=== PATIENT | female | born 1955 | race Caucasian/White ===

== ENCOUNTER 2017-04-26 08:53 | Day surgery (SDC) | payer MEDICARE ==
[~2017-04-26] VITALS: Ht 157.5 cm; Wt 82.3 kg
[~2017-04-26 08:53] MED LIST: AMBIEN10 MG PO; BENADRYL25 MG PO; EXFORGE 10-3201 TAB PO; LASIX80 MG PO; NORCO 7.5/325 T1 TA1 PO; PLAVIX75 MG PO; PROTONIX40 MG PO; TOPROL XL100 MG PO; TOUJEO SQ
[2017-04-26 09:35] LABS: ANION GAP 15.4 mmol/L (8-16); CALCIUM 8.7 mg/dL (8.5-10.1); CARBON DIOXIDE 22.8 mmol/L (21.0-32.0); CREATININE - SERUM 8.3 mg/dL (0.6-1.3); POTASSIUM - SERUM 4.2 mmol/L (3.5-5.1)
[2017-04-26 09:39] LABS: BASOPHILS 0.2 % (0-2); EOSINOPHILS 3.1 % (0-7); HEMOGLOBIN 10.4 g/dL (12-16); IMMATURE GRANULOCYTES 0.3 % (0-5); LYMPHOCYTES 17.5 % (15-50); MCHC 32.5 g/dL (31.0-37.0); MEAN PLATELET VOLUME 11.1 fL (7.4-10.4); MONOCYTES 7.5 % (2-11); NEUTROPHILS 71.4 % (40-80); PLATELET COUNT 263 10x3/uL (130-400); RBC 3.72 10x6/uL (4.00-5.40); RDW 13.2 % (11.5-14.5); WBC 11.3 10x3/uL (4.8-10.8)
[2017-04-26 09:44] LABS: APTT 25.6 SECONDS (22.8-39.4); INR 0.89 (0.85-1.17); PROTIME 11.9 SECONDS (11.6-15.0)
[2017-04-26] MEDS ORDERED: TOPROL XL50 MG PO (10:53)
[2017-04-26] MEDS ORDERED: ZANTAC150 MG PO (10:53)
[2017-04-26] MEDS ORDERED: CALAN80 MG PO (10:54)
[2017-04-26] MEDS ORDERED: GABAPENTIN100 MG PO (10:55)
[2017-04-26 10:59] VITALS: BP 185/88; Ht 157.5 cm; Wt 82.3 kg
--- NOTE | 2017-04-26 13:45 | OP ---
PATIENT NAME: NATALIE QURESHI MEDICAL RECORD: [id number] :57 LOCATION:D.NICK ADMISSION DATE: SURGEON: FLORENTINO LUNA MD DATE OF OPERATION: 04/26/2017 PREOPERATIVE DIAGNOSES: 1. End-stage renal disease. 2. Hypercholesterolemia. POSTOPERATIVE DIAGNOSES: 1. End-stage renal disease. 2. Hypercholesterolemia. PROCEDURE: 1. Right upper extremity fistulogram. SURGEON: Florentino Luna MD REPORT OF PROCEDURE: The patient's right upper extremity was prepped and draped in sterile fashion. A 23-Israeli butterfly needle was inserted in the proximal aspect of the AV fistula. A total of 10 mL of contrast was used to perform a fistulogram up to the axilla. There was a good brisk thrill of the fistula and when we inserted the needle, there was a good pulsatile return. The contrast flowed freely through the AV fistula with no signs of any stenoses or significant collaterals. We compressed the AV fistula and saw that the anastomosis was widely patent and functioning appropriately. At this point, we discontinued the procedure and removed the butterfly needle. Pressure was held on the area for a couple minutes until bleeding ceased. This was then dressed with a Band-Aid. COMPLICATIONS: None. CONDITION: Stable. ANESTHESIA: General endotracheal. BLOOD LOSS: Minimal. TRANSINT:[id number] Voice Confirmation ID: [id number] DOCUMENT ID: [id number] FLORENTINO LUNA MD at 1345 CC: DWAYNE PASCUAL MD [id number] DICTATION DATE: 04/26/17 1155 RIPRAP MAN: 04/26/17 1238 [address] [place] [address]
--- NOTE | 2017-04-26 15:38 | NUR ---
1310--IV DC'D, PT UP TO DRESS AT THIS TIME. OLIVE PONCE 1330--DISCHARGE INSTRUCTIONS GIVEN, PT VERBALIZES UNDERSTANDING. PT OFF UNIT VIA WC. OLIVE PONCE
== END 2017-04-26 13:30 | disposition home or self-care (01) ==
LOC: D.OPS 08:53
PROVIDERS: Surgery
DX: E13.22 Other specified diabetes mellitus with diabetic chronic kidney disease (principal); I12.0 Hypertensive chronic kidney disease with stage 5 chronic kidney disease or end stage renal disease; N18.6 End stage renal disease; Z99.2 Dependence on renal dialysis; I44.0 Atrioventricular block, first degree; Z01.812 Encounter for preprocedural laboratory examination

== ENCOUNTER 2017-11-15 17:11 | Inpatient (IN) | payer MEDICARE ==
[2017-11-15] VITALS (7 sets, daily range): BP systolic 146–214; BP diastolic 68–101; BMI 32.1
[~2017-11-15] VITALS: Ht 157.5 cm; Wt 78.3 kg
[~2017-11-15 17:11] MED LIST changes: +CALAN80 MG PO; +GABAPENTIN100 MG PO; +TOPROL XL50 MG PO; +ZANTAC150 MG PO
[2017-11-15] MEDS ORDERED: CATAPRES0.1 MG PO (17:21)
[2017-11-15] MEDS ORDERED: FERROUS SULFAT325 MG PO (17:22)
[2017-11-15] MEDS ORDERED: NOVOLOG100 U/M1 SC (17:25)
[2017-11-15] MEDS ORDERED: ZOCOR20 MG PO (17:26)
[2017-11-15] MEDS ORDERED: DIOVAN320 MG PO (17:28)
[2017-11-15] MEDS ORDERED: ZOFRAN8 MG PO (17:32)
[2017-11-15 18:28] LABS: BASOPHILS 0.3 % (0-2); EOSINOPHILS 0.4 % (0-7); HEMATOCRIT 39.8 % (36.0-48.0); HEMOGLOBIN 12.4 g/dL (12-16); IMMATURE GRANULOCYTES 0.6 % (0-5); LYMPHOCYTES 14.5 % (15-50); MCH 27.3 pg (26.0-34.0); MCHC 31.2 g/dL (31.0-37.0); MCV 87.5 fL (80.0-100.0); MEAN PLATELET VOLUME 11.3 fL (7.4-10.4); NEUTROPHILS 81.2 % (40-80); RBC 4.55 10x6/uL (4.00-5.40); WBC 14.2 10x3/uL (4.8-10.8)
[2017-11-15 18:37] LABS: ANION GAP 17.5 mmol/L (8-16); CALCIUM 11.2 mg/dL (8.5-10.1); CARBON DIOXIDE 24.8 mmol/L (21.0-32.0); CREATININE - SERUM 10.8 mg/dL (0.6-1.3)
[2017-11-15 18:39] LABS: POTASSIUM - SERUM 6.3 mmol/L (3.5-5.1)
[2017-11-15 18:52] LABS: PLATELET COUNT 374 10x3/uL (130-400)
[2017-11-16] VITALS (16 sets, daily range): BP systolic 136–207; BP diastolic 63–127; Ht 157.5 cm; Wt 78.3 kg
[2017-11-16 07:20] LABS: BASOPHILS 0.4 % (0-2); EOSINOPHILS 0.9 % (0-7); HEMATOCRIT 35.3 % (36.0-48.0); HEMOGLOBIN 11.1 g/dL (12-16); IMMATURE GRANULOCYTES 0.6 % (0-5); LYMPHOCYTES 20.2 % (15-50); MCH 27.2 pg (26.0-34.0); MCHC 31.4 g/dL (31.0-37.0); MCV 86.5 fL (80.0-100.0); MEAN PLATELET VOLUME 11.2 fL (7.4-10.4); MONOCYTES 8.8 % (2-11); NEUTROPHILS 69.1 % (40-80); PLATELET COUNT 328 10x3/uL (130-400); RBC 4.08 10x6/uL (4.00-5.40); WBC 13.4 10x3/uL (4.8-10.8)
[2017-11-16 07:24] LABS: ANION GAP 15.7 mmol/L (8-16); CALCIUM 9.6 mg/dL (8.5-10.1); CARBON DIOXIDE 29.7 mmol/L (21.0-32.0); CREATININE - SERUM 10.7 mg/dL (0.6-1.3); POTASSIUM - SERUM 4.4 mmol/L (3.5-5.1)
[2017-11-17 01:52] VITALS: BP 165/58
[2017-11-17 05:37] VITALS: BP 159/61
[2017-11-17 09:01] VITALS: BP 131/59
[2017-11-17 10:00] LABS: BASOPHILS 0.2 % (0-2); EOSINOPHILS 0.2 % (0-7); HEMATOCRIT 34.7 % (36.0-48.0); HEMOGLOBIN 10.8 g/dL (12-16); IMMATURE GRANULOCYTES 0.8 % (0-5); LYMPHOCYTES 10.2 % (15-50); MCH 27.2 pg (26.0-34.0); MCHC 31.1 g/dL (31.0-37.0); MCV 87.4 fL (80.0-100.0); MEAN PLATELET VOLUME 11.4 fL (7.4-10.4); MONOCYTES 5.8 % (2-11); NEUTROPHILS 82.8 % (40-80); PLATELET COUNT 283 10x3/uL (130-400); RBC 3.97 10x6/uL (4.00-5.40); RDW 14.2 % (11.5-14.5)
[2017-11-17 10:04] LABS: WBC 18.5 10x3/uL (4.8-10.8)
[2017-11-17 10:11] LABS: ANION GAP 9.7 mmol/L (8-16); CALCIUM 7.9 mg/dL (8.5-10.1); CARBON DIOXIDE 31.9 mmol/L (21.0-32.0); CREATININE - SERUM 7.6 mg/dL (0.6-1.3); POTASSIUM - SERUM 3.6 mmol/L (3.5-5.1)
[2017-11-17 13:03] VITALS: BP 143/60
[2017-11-17 16:29] LABS: APPEARANCE HAZY (CLEAR); BILIRUBIN NEGATIVE (NEGATIVE); COLOR YELLOW (YELLOW); GLUCOSE 250 mg/dL (NEGATIVE); KETONE NEGATIVE (NEGATIVE); NITRITE NEGATIVE (NEGATIVE); PROTEIN 3+ mg/dL (NEGATIVE); UROBILINOGEN NORMAL (NORMAL)
[2017-11-17 16:37] LABS: BACTERIA MODERATE /hpf (NONE SEEN); EPITHELIAL CELLS 0-5 /hpf (0-5); RED CELLS - URINE RARE /hpf (0-5); WHITE CELLS - URINE 0-5 /hpf (0-5); YEAST >1+ /hpf (NONE SEEN)
[2017-11-17 17:15] VITALS: BP 153/86
[2017-11-17 21:25] VITALS: BP 149/62
[2017-11-18 00:35] VITALS: BP 130/47
[2017-11-18 02:19] VITALS: BP 147/63
[2017-11-18 04:51] LABS: BASOPHILS 0.1 % (0-2); EOSINOPHILS 2.2 % (0-7); HEMATOCRIT 31.3 % (36.0-48.0); HEMOGLOBIN 9.9 g/dL (12-16); IMMATURE GRANULOCYTES 1.3 % (0-5); LYMPHOCYTES 14.5 % (15-50); MCH 27.4 pg (26.0-34.0); MCHC 31.6 g/dL (31.0-37.0); MCV 86.7 fL (80.0-100.0); MEAN PLATELET VOLUME 11.3 fL (7.4-10.4); MONOCYTES 9.9 % (2-11); PLATELET COUNT 244 10x3/uL (130-400); RBC 3.61 10x6/uL (4.00-5.40); RDW 14.2 % (11.5-14.5); WBC 14.7 10x3/uL (4.8-10.8)
[2017-11-18 05:03] LABS: ANION GAP 10.1 mmol/L (8-16); CALCIUM 7.3 mg/dL (8.5-10.1); CARBON DIOXIDE 30.3 mmol/L (21.0-32.0); CREATININE - SERUM 8.2 mg/dL (0.6-1.3); POTASSIUM - SERUM 3.4 mmol/L (3.5-5.1)
[2017-11-18 05:41] VITALS: BP 144/63
[2017-11-18 08:39] VITALS: BP 162/68
[2017-11-18 16:55] VITALS: BP 189/83
[2017-11-18 21:09] VITALS: BP 170/71
[2017-11-19 05:10] LABS: BASOPHILS 0.2 % (0-2); EOSINOPHILS 1.4 % (0-7); HEMATOCRIT 32.2 % (36.0-48.0); HEMOGLOBIN 9.9 g/dL (12-16); IMMATURE GRANULOCYTES 1.4 % (0-5); LYMPHOCYTES 12.1 % (15-50); MCH 26.8 pg (26.0-34.0); MCHC 30.7 g/dL (31.0-37.0); MEAN PLATELET VOLUME 11.8 fL (7.4-10.4); MONOCYTES 10.1 % (2-11); NEUTROPHILS 74.8 % (40-80); PLATELET COUNT 243 10x3/uL (130-400); RDW 14.4 % (11.5-14.5); WBC 17.5 10x3/uL (4.8-10.8)
[2017-11-19 05:14] LABS: HEPATITIS C ANTIBODY <0.1 (0.0-0.9)
[2017-11-19 05:24] LABS: ANION GAP 13.1 mmol/L (8-16); CALCIUM 7.9 mg/dL (8.5-10.1); CARBON DIOXIDE 27.8 mmol/L (21.0-32.0); CREATININE - SERUM 6.7 mg/dL (0.6-1.3); POTASSIUM - SERUM 3.9 mmol/L (3.5-5.1)
[2017-11-19 06:16] VITALS: BP 109/80
[2017-11-19 09:07] VITALS: BP 180/75
[2017-11-19 12:15] VITALS: BP 145/65
[2017-11-19 16:34] VITALS: BP 154/72
[2017-11-19 21:30] VITALS: BP 178/69
[2017-11-20 01:12] VITALS: BP 167/67
[2017-11-20 05:17] LABS: BASOPHILS 0.2 % (0-2); EOSINOPHILS 2.4 % (0-7); HEMATOCRIT 32.5 % (36.0-48.0); HEMOGLOBIN 10.2 g/dL (12-16); IMMATURE GRANULOCYTES 1.1 % (0-5); MCH 27.4 pg (26.0-34.0); MCHC 31.4 g/dL (31.0-37.0); MCV 87.4 fL (80.0-100.0); MEAN PLATELET VOLUME 11.4 fL (7.4-10.4); MONOCYTES 10.9 % (2-11); NEUTROPHILS 70.4 % (40-80); PLATELET COUNT 241 10x3/uL (130-400); RBC 3.72 10x6/uL (4.00-5.40); RDW 14.8 % (11.5-14.5); WBC 16.5 10x3/uL (4.8-10.8)
[2017-11-20 05:21] VITALS: BP 174/78
[2017-11-20 05:30] LABS: ANION GAP 14.3 mmol/L (8-16); CALCIUM 8.4 mg/dL (8.5-10.1); CARBON DIOXIDE 28.2 mmol/L (21.0-32.0); POTASSIUM - SERUM 3.5 mmol/L (3.5-5.1)
[2017-11-20 08:09] VITALS: BP 170/71
[2017-11-20 11:34] VITALS: BP 170/71
[2017-11-20] MEDS ORDERED: HYDRALAZINE HCL50 MG PO (12:46)
== END 2017-11-20 14:53 | disposition home health service (06) | DRG 673 ==
LOC: D.ICU 17:11 → D.M2 17:11
PROVIDERS: Internal Medicine Nephrology; Surgery
PROC: 05HN33Z Insertion of Infusion Device into Left Internal Jugular Vein, Percutaneous Approach (ICD-10-PCS; 2017-11-18)
PROC: B5141ZA Fluoroscopy of Left Jugular Veins using Low Osmolar Contrast, Guidance (ICD-10-PCS; 2017-11-18)
PROC: 0JH63XZ Insertion of Tunneled Vascular Access Device into Chest Subcutaneous Tissue and Fascia, Percutaneous Approach (ICD-10-PCS; principal; 2017-11-18 10:30)
DX: I12.0 Hypertensive chronic kidney disease with stage 5 chronic kidney disease or end stage renal disease (principal); E43 Unspecified severe protein-calorie malnutrition; N18.6 End stage renal disease; N25.81 Secondary hyperparathyroidism of renal origin; E11.22 Type 2 diabetes mellitus with diabetic chronic kidney disease; E87.5 Hyperkalemia; D63.1 Anemia in chronic kidney disease; S05.11XA Contusion of eyeball and orbital tissues, right eye, initial encounter; W19.XXXA Unspecified fall, initial encounter; Z68.32 Body mass index [BMI] 32.0-32.9, adult; Z86.73 Personal history of transient ischemic attack (TIA), and cerebral infarction without residual deficits

== ENCOUNTER 2018-03-12 04:45 | Inpatient (IN) | payer MEDICARE ==
[~2018-03-12] VITALS: Ht 157.5 cm; Wt 76.2 kg
[2018-03-12] VITALS (39 sets, daily range): BP systolic 63–203; BP diastolic 38–128; Ht 157.5 cm; Wt 76.2 kg
--- NOTE | ~2018-03-12 | PN ---
PATIENT:NATALIE QURESHI MEDICAL RECORD: [id number] LOCATION:D.ICU D.230 ADMISSION DATE: 03/12/18 PROGRESS NOTE DATE OF SERVICE: 03/30/2018 SUBJECTIVE: This is a 62-year-old female who has had history of acute respiratory failure with hypoxemia. The patient has volume overload with renal failure. She has had the dialysis therapy. She is also being treated for pneumonia. The patient's blood cultures showed yeast. Bronch specimen showed Evelyn tropicalis. The patient is sedated, on the ventilator. There is no fever. The is at the bedside. PHYSICAL EXAMINATION: GENERAL: Reveals a middle-aged female who appears to be older than stated age. VITAL SIGNS: Temperature 100.8, heart rate 104, respiratory rate of 23, blood pressure 125/64, saturation is 97%. SHEENT: Unremarkable. The patient is normocephalic. Pupils are equal and reactive. NECK: Supple. There is no adenopathy. Trachea is midline. There is fresh tracheostomy tube. CHEST: Clear. There are no wheezes or crackles. CARDIAC: Shows no jugular venous distention, murmur, or gallop. ABDOMEN: Benign without any tenderness. EXTREMITIES: Show no clubbing, cyanosis, or edema. LABORATORY DATA: Lab exam shows white count of 16.1, hemoglobin 9.7, and platelet count is 265,000. Blood gas; pH 7.5, pCO2 of 31, and pO2 of 123 on 40% SIMV. Chemistry is remarkable for potassium of 3.7, sodium 132, creatinine is 5.8, BUN is 78. Albumin is 1.6. ASSESSMENT: 1. Acute respiratory failure with hypoxemia. 2. Pneumonia and pulmonary edema. 3. Chronic renal failure. 4. Anasarca with hypoalbuminemia. This is probably exacerbating renal failure, on dialysis. The patient is currently on tube feeding. 5. Leukocytosis, may be due to topical steroid therapy. DISCUSSION: NEUROPSYCHIATRY: The patient has no focal signs. The patient is currently sedated. CARDIOVASCULAR: The patient may have congestive heart failure. PULMONARY/RESPIRATORY: The patient is on mechanical ventilation with a trach. She is on bronchodilators. RENAL/METABOLIC: The patient has severe renal failure. Creatinine keeps increasing despite dialysis. PLAN: 1. Continue dialysis. 2. Continue ventilator. 3. Continue tube feeding for malnutrition. 4. Weaning. 5. Continue antibiotics. PROGRESS NOTE [id number] NATALIE QURESHI Total time spent is 35 minutes, discussing with nurse, respiratory therapist, and . TRANSINT:[id number] Voice Confirmation ID: [id number] DOCUMENT ID: [id number] MICHAEL TODD at 1307 CC: [id number] DICTATION DATE: 03/30/18 110 CATHODE RAY TUBE SALVAGE PROCESSOR: 03/30/18 1821 DIS IN 04/07/18 [facility] [address] [place] [address]
--- NOTE | ~2018-03-12 | HEMODYNAMI ---
PATIENT:NATALIE QURESHI MEDICAL RECORD: [id number] : 57 LOCATION:[facility] D.2303 ADMISSION DATE: 03/12/18 Generatedon:04/04/201823:06 Patient name: NATALIE QURESHI Patient #: [id number] SSN: : 1955 Date of study: 04/04/2018 Page: Of Hemodynamic Procedure Report Patient Data Patient Demographics Procedure consent was obtained First Name: NATALIE Gender: Female Last Name: KIERA : 1955 [facility] Initial: MARIXA Age: 62 year(s) Patient #: [id number] Race: Unknown Additional ID: [id number] Contact details Address: [address] [place] [address] State: [place] City: [place] Zip code: [address] Past Medical History Allergies: No known allergies Admission Admission Data Admission Date: 03/12/2018 Admission Time: 5:15 Room #: D2303 Procedure Procedure Types Cath Procedure Peripheral Cath Diagnostic Procedure Abd/Extremity Visceral/Mesenteric Procedure Description Procedure Date Procedure Date: 04/04/2018 Procedure Start Time: 21:37 Procedure Staff Name Function Litzy French RT Scrub Yulissa Azar RN Nurse Paula Almanza MD Performing Physician Simon Ward RT Monitor Procedure Data Cath Procedure Fluoroscopy Diagnostic fluoroscopy Total fluoroscopy Time: time: 10.7 min 10.7 min Diagnostic fluoroscopy Total fluoroscopy dose: dose: 2256 mGy 2256 mGy Contrast Material Contrast Material Type Amount (ml) Isovue 300 137 Entry Location Entry Primary Successful Side Size Upsize Upsize Entry Closure Succes sful Closure Location (Fr) 1 (Fr) 2 (Fr) Remarks Device Remarks Femoral Right 5 Fr artery Diagnostic catheters Device Type Used For End Catheter Placement Angiodynamics SOS OMNI 2 NON B 5FR 65CM catheter ([id number]) Procedure Medications Medication Administration Route Dosage Versed I.V. 1 mg Fentanyl I.V. 50 mcg Lidocaine 1% added to field 20 Heparin Flush Bag added to field 3 bags (1000units/500ml NS) Versed I.V. 1 mg Fentanyl I.V. 50 mcg Hemodynamics Rest Heart Rate: 114 (bpm) Snapshots Pre Cath Intra NCS Post Cath Vital Signs Time Heart Resp SPO2 NIBP (mmHg) Rhythm Pain Sedation Rate (ipm) (%) Status Level (bpm) 21:31:58 114 13 100 182/91(139) NSR 0 (11) 10(A) , No pain 21:36:57 113 19 Measuring NSR 0 (11) 10(A) , No pain 21:38:19 114 14 Time NSR 0 (11) 10(A) Exceeded , No pain 21:41:09 112 10 100 184/80(112) NSR 0 (11) 10(A) , No pain 21:45:31 106 13 154/68(99) NSR 0 (11) 10(A) , No pain 21:50:30 107 13 Measuring NSR 0 (11) 10(A) , No pain 21:51:44 105 14 Disturbed NSR 0 (11) 10(A) , No pain 21:53:00 107 22 132/83(120) NSR 0 (11) 10(A) , No pain 21:57:59 105 13 Measuring NSR 0 (11) 10(A) , No pain 21:59:23 103 12 Time NSR 0 (11) 10(A) Exceeded , No pain 22:03:49 105 13 143/57(101) NSR 0 (11) 10(A) , No pain 22:08:07 103 14 132/57(100) NSR 0 (11) 10(A) , No pain 22:13:06 101 13 Measuring NSR 0 (11) 10(A) , No pain 22:13:31 103 24 111/50(92) NSR 0 (11) 10(A) , No pain 22:18:30 111 12 Measuring NSR 0 (11) 10(A) , No pain 22:18:36 111 13 169/65(132) NSR 0 (11) 10(A) , No pain 22:21:01 105 13 152/62(97) NSR 0 (11) 10(A) , No pain 22:26:00 99 13 Measuring NSR 0 (11) 10(A) , No pain 22:26:27 99 13 100/51(72) NSR 0 (11) 10(A) , No pain 22:31:26 101 14 120/48(85) NSR 0 (11) 10(A) , No pain 22:35:44 101 13 99 128/50(93) NSR 0 (11) 10(A) , No pain 22:39:58 103 17 123/68(102) NSR 0 (11) 10(A) , No pain 22:44:57 108 17 Measuring NSR 0 (11) 10(A) , No pain 22:46:01 108 16 165/76(118) NSR 0 (11) 10(A) , No pain 22:50:59 111 13 100 Measuring NSR 0 (11) 10(A) , No pain 22:51:36 110 12 221/95(155) NSR 0 (11) 10(A) , No pain 22:55:36 No Cuff NSR 0 (11) 10(A) , No pain 22:59:36 No Cuff NSR 0 (11) 10(A) , No pain 23:03:35 No Cuff NSR 0 (11) 10(A) , No pain Medications Time Medication Route Dose Verified Delivered Reason Notes Effec tiveness by by 21:41:50 Versed I.V. 1 mg M J Long Yulissa Azar RN 21:42:01 Fentanyl I.V. 50 M J Long Yulissa for [facility] MD Azar RN sedation 21:42:16 Lidocaine 1% added 20ml M J Long M J Long used for to vial MD MERRILL procedure field 21:42:33 Heparin Flush added 3 M J Long M J Long used for Bag to bags MD MERRILL procedure (1000units/500ml field NS) 21:57:35 Versed I.V. 1 mg M J Long Yulissa for [facility] PONCE sedation 21:57:44 Fentanyl I.V. 50 M J Long Yulissa for [facility] MD Doe PONCE sedation Procedure Log Time Note 21:18:36 Yariel Eric RN sent for patient. Start room use. 21:19:18 Time tracking: Call back (After hours or weekends) 21:19:22 Plan of Care:Hemodynamics will remain stable., Cardiac rhythm will remain stable., Comfort level will be maintained., Respiratory function will remain adequate., Patient/ family verbilizes understanding of procedure., Procedure tolerated without complication., Recovers from procedure without complications.. 21:19:34 Patient received from ICU to IR Alert and oriented. Tansferred to table in Supine position. 21:19:41 Correct patient and procedure confirmed by team. 21:19:44 Signed procedure consent form obtained from patient. 21:19:48 Full Disclosure recording started 21:19:51 ECG and BP/O2 sat monitors applied to patient. 21:19:53 - 21:19:57 H&P Date Dictated: 04/04/2018 Within 30 days and on chart.. 21:20:10 Unable to provide pre-op teaching due to educational barrier. pt un kelly t unable to communicate 21:20:12 Family in waiting room. 21:20:13 Patient NPO since Midnight. 21:20:31 Patient allergic to No known allergies 21:20:51 PT.UNABLE TO COMMUNICATE ANSWERS ON VENT 21:20:56 Use device set IR Diagnostic 21:20:57 ACIST Hand Control (25406) opened to sterile field. 21:20:57 ACIST Syringe (05975) opened to sterile field. 21:20:58 Sterile Angiographic Pack opened to sterile field. 21:20:58 Bag Decanter (2002S) opened to sterile field. 21:20:58 ACIST Manifold (25890) opened to sterile field. 21:20:59 Tegaderm 4 x 4 (1626W) opened to sterile field. 21:22:46 Pre procedure: right dorsailis pedis pulse 1+ Palpable, but thready & weak; easily obliterated 21:22:52 Pre procedure: right posterior tibial pulse Doppler 21:22:56 Sharps counted by scrub and verified by R.N. 21:22:57 Alarms reviewed by R. N. 21:24:44 IV patent on arrival in right IJ with 0.9% NaCl at KVO. 21:24:48 Right groin area was prepped with chlora-prep and draped in sterile fashion 21:30:44 Vital chart was started 21:30:47 Baseline sample Acquired. 21:31:27 Baseline sample Acquired. 21:31:32 Physician arrived ::33 Final Timeout: patient, procedure, and site verified with staff and physician. All members of the team are in agreement. ::33 --------ALL STOP TIME OUT------ 21:31:36 Right groin site verified by team. ::43 Sedation plan: IV Moderate Sedation Medication:Versed, Fentanyl 21:37:05 Procedure started. 21:37:10 Local anesthetic to right femoral artery with Lidocaine 1% by Paula Almanza MD.INITIAL ACCESS ONLY 21:38:29 Micropuncture VSI 4FR kit opened to sterile field. 21:38:30 DOC .035 wire (Y59400) opened to sterile field. 21:38:30 TUBING Contrast Injection High Pressure (JBU490T) opened to sterile field. 21:38:31 SHEATH 5FR Willis (HJY508) opened to sterile field. 21:38:34 A [facility] OMNI 2 NON B 5FR 65CM catheter ([id number]) was advanced over the wire and used for . 21:38:37 Access obtained with 4Fr micropunture. 21:38:47 A 5 Fr sheath was inserted into the Right Femoral artery 21:41:50 Versed 1 mg I.V. was administered by Yulissa Azar RN; ; 21:42:01 Fentanyl 50 mcg I.V. was administered by Yulissa Azar RN; for sedation ; 21:42:16 Lidocaine 1% 20ml vial added to field was administered by Paula Almanza MD; used for procedure; 21:42:33 Heparin Flush Bag (1000units/500ml NS) 3 bags added to field was administered by Paula Almanza MD; used for procedure; 21:47:46 GLIDE WIRE .035 180CM STRAIGHT (KY8720) opened to sterile field. 21:57:35 Versed 1 mg I.V. was administered by Yulissa Azar RN; for sedation; :57:44 Fentanyl 50 mcg I.V. was administered by Yulissa Azar RN; for sedation ; 22:12:16 TRANSEND STEERABLE wire ([id number]) opened to sterile field. 22:12:17 RENEGADE STAIGHT 150CM microcatheter ([id number]) opened to sterile field. 22:12:18 COPILOT Valve Control (1443030) opened to sterile field. 22:12:25 SUTURE ETHILON 2-0 BLK MONO FS opened to sterile field. 22:30:23 Tegaderm 6 x 8 (1628) opened to sterile field. 22:30:24 Tegaderm 6 x 8 (1628) opened to sterile field. 22:30:25 Tegaderm 6 x 8 (1628) opened to sterile field. 22:30:35 Procedure ended.(Physican Out) 22:31:[address] 1-Way Male Rotating (E78895) opened to sterile field. 22:32:21 Fluoroscopy time 10.70 minutes. 22:32:29 Fluoroscopy dose: 2256 mGy 22:32:29 Flurop Dose total: 2256 22:32:34 Sharps counted by scrub and verified by R.N. 22:33:52 SHEATH SUTURED IN 22:33:55 Insertion/operative site no bleeding no hematoma. 22:33:59 Post right femoral artery:stable 22:34:03 Post Procedure Pulses reassessed and unchanged 22:34:41 UNABLE TO GIVE POST INSTRUCTION DUE TO PT ON VENT 22:46:30 Contrast amount:Isovue 300 137ml. 23:04:49 Report given to ICU. 23:04:53 Patient transfered to ICU with Bed. 23:05:25 Full Disclosure recording stopped Device Usage Item Name Manufacture Quantity Catalog Hospital Part Current Minim al Lot# / Number Charge Number Stock Stock Serial# Code ACIST Syringe Acist Medical 1 85818 362935 912491 845190 20 (79608) Systems Inc ACIST Hand Acist Medical 1 66438 174254 644319 709674 5 Control Systems Inc (85576) ACIST Acist Medical 1 23626 644029 580150 537476 5 Manifold Systems Inc (03983) Bag Decanter Microtek 1 509338 90881 603932 5 () Medical Inc. Sterile Cardinal 1 [id number] 367068 012378 5 Angiographic Health Pack Tegaderm 4 x 3M 1 1626W 075318 213937 610095 5 4 (1626W) Micropuncture VSI VASCULAR 1 7266V 708987 744674 5 VSI 4FR kit SOLUTIONS TUBING [facility] 1 VTQ673A 062159 752526 200714 5 Contrast Injection High Pressure (JBL483N) DOC .035 wire [facility] 1 P66937 054564 402873 5 (H09220) SHEATH 5FR Terumo 1 FCX839 443874 771508 707194 40 Willis (BGP333) Angiodynamics Angiodynamics 1 40123345 815961 39543 885050 5 SOS OMNI 2 NON B 5FR 65CM catheter (78793244) GLIDE WIRE Terumo 1 XP5460 988491 341643 5 .035 180CM STRAIGHT (GI0907) TRANSEND Corona 1 [id number] 937513 638664 5 [id number] STEERABLE Scientific wire ([id number]) RENEGADE Corona 1 [id number] 805026 435004 5 93002265 STAIGHT 150CM Scientific microcatheter ([id number]) COPILOT Valve Muhammad 1 7388670 715498 180238 393320 5 Control Vascular (6424727) SUTURE Ethicon 1 664H 514057 355470 5 ETHILON 2-0 BLK MONO FS Tegaderm 6 x 3M 3 1628 312254 746603 5 8 (1628) [facility] 1 N68772 815774 65785 659661 [address] 1-Way Male Rotating (G20646) Signature Audit [place] Stage Time Signature Unsigned Intra-Procedure 04/04/2018 Simon 11:06:29 PM Sylvia RT (R) (CV) Signatures Monitor : Simon Signature : Sylvia RT Date : Time : [facility] [address] [place] [address]
--- NOTE | ~2018-03-12 | PN ---
PATIENT:NATALIE QURESHI MEDICAL RECORD: [id number] LOCATION:D.ICU D.230 ADMISSION DATE: 03/12/18 PROGRESS NOTE DATE OF SERVICE: 03/26/2018 SUBJECTIVE: This is a 62-year-old female who was admitted with septic shock, bradycardia as well as hypothermia. The patient was felt to have pneumonia as well as end-stage renal disease. The patient was intubated and recently was trached, currently on a ventilator. The patient is doing well on the ventilator and a weaning trial will be done this morning. There are no fevers, there are no chills. PHYSICAL EXAMINATION: GENERAL: This is an elderly female who is in no acute distress, on sedation. VITAL SIGNS: Temperature 99.2, heart rate of 118, respiratory rate of 21, blood pressure 151/77, saturation is 98% on 30% ventilator. SHEENT: Unremarkable. NECK: Supple, no adenopathy. Trachea is midline. There is a tracheostomy tube. CHEST: Shows some mild crackles. No wheezes. CARDIAC: Shows no jugular venous distention, murmurs, or gallops. ABDOMEN: Benign. EXTREMITIES: Shows no clubbing, cyanosis or edema. NEUROLOGIC: No focal deficits. LABORATORY DATA: Showed white count of 14.7, hemoglobin 11.6, and platelet count is 239. Arterial blood gas: pH 7.42, pCO2 of 27, pO2 is 125, on 40%, tidal volume of 600, and a PEEP of 5. Chemistry is remarkable for sodium of 131, creatinine is 8.7, potassium 4.6. Glucose level is 250. ASSESSMENT: 1. Acute respiratory failure with hypoxemia. 2. Vphbx-zw-doglvaw renal failure, possible volume overload. 3. Severe azotemia and may need dialysis for removal of fluids. We will meanwhile use Lasix or Bumex for diuresis. 4. Leukocytosis is improving. DISCUSSION: NEUROPSYCHIATRY: There is no focal deficit. The patient is sedated and baseline mental status is not known. CARDIOVASCULAR: There are no current issues. PULMONARY AND RESPIRATORY: The patient has volume overload. She has congestion and pneumonia. May need hemodialysis if it is agreeable with the family. GASTROINTESTINAL AND DIETARY: There is no GI bleed, no abdominal pain, tenderness. The patient is on tube feeding. PLAN: 1. Bumex 2 mg IV push times 1 to see effects. 2. Renal consultation. 3. Continue ventilator care. TRANSINT:[id number] Voice Confirmation ID: [id number] DOCUMENT ID: [id number] PROGRESS NOTE [id number] NATALIE QURESHI AUGUSTINE K at 0754 CC: [id number] DICTATION DATE: 03/26/18 1110 WASTE SPECIALIST: 03/26/18 1256 ADM [address] [place] [id number] [place] [id number]
--- NOTE | ~2018-03-12 | OP ---
PATIENT NAME: NATALIE QURESHI MEDICAL RECORD: [id number] :57 LOCATION:D.ICU D.2303 ADMISSION DATE:03/12/18 SURGEON: MEHDI LUNA MD DATE OF OPERATION: 03/12/2018 PREOPERATIVE DIAGNOSES: 1. End-stage renal disease with need for hemodialysis access. 2. Respiratory failure on the ventilator. 3. Anemia of chronic disease. 4. Hypertension. 5. Diabetes mellitus. 6. Sepsis. POSTOPERATIVE DIAGNOSES: 1. End-stage renal disease with need for hemodialysis access. 2. Respiratory failure on the ventilator. 3. Anemia of chronic disease. 4. Hypertension. 5. Diabetes mellitus. 6. Sepsis. PROCEDURE: Right IJ 15 cm Trialysis catheter placement. SURGEON: Mehdi Luna MD REPORT OF PROCEDURE: The patient's right neck was prepped and draped in sterile fashion. A needle was used to cannulate the right internal jugular vein under ultrasound guidance. A guidewire was then advanced with ease. Over this wire, a dilator was placed followed by the Trialysis catheter. The catheter aspirated nonpulsatile dark blood and flushed easily in all 3 ports. This was sutured into place with 4-0 nylons and dressed appropriately. COMPLICATIONS: None. CONDITION: Critical. ANESTHESIA: General endotracheal. BLOOD LOSS: Minimal. Procedure done in the ICU at the bedside. TRANSINT:[id number] Voice Confirmation ID: [id number] DOCUMENT ID: [id number] MEHDI LUNA MD at 0801 CC: [id number] DICTATION DATE: 03/12/18 1108 FIRE ENGINE PUMP OPERATOR: 03/12/18 1115 ADM IN [id number] [place] [address]
--- NOTE | ~2018-03-12 | PN ---
PATIENT:NATALIE QURESHI MEDICAL RECORD: [id number] LOCATION:D.ICU D.230 ADMISSION DATE: 03/12/18 PROGRESS NOTE DATE OF SERVICE: 03/29/2018 HISTORY: A 62-year-old female who was admitted with acute respiratory failure, hypoxia. The patient was felt to have pneumonia. She had been on doxycycline for several days and she has also had antibiotics. Her white count has remained elevated. She has had kidney disease and has had dialysis yesterday, dialysis was unsuccessful. The patient has been awake and alert. The patient has been on mechanical ventilation, on trach. She has been awake and alert. Some fever. The patient has had code blue on this admission. She has also had ventricular dysfunction with ejection fraction of 40%. Family is at the bedside. PHYSICAL EXAMINATION: GENERAL: Reveals a middle-aged female who is no acute distress, awake, on the ventilator. VITAL SIGNS: Temperature 98.4, heart rate of 102, respiratory rate of 18, blood pressure 138/71, saturation is 97%. SHEENT: The patient is awake. Pupils are equal and reactive. Nares are normal. Oral cavity shows tracheal and gastric tubes. There is no erosion. NECK: Supple. There is no adenopathy. Trachea is midline. No thyromegaly. CHEST: Shows some mild crackles. There is no accessory muscle use. CARDIAC: Shows no jugular venous distention, murmur or gallops. ABDOMEN: Benign. No tenderness, no distention. EXTREMITIES: Shows no clubbing, cyanosis or edema in the lower extremities. There is mild edema in the upper extremities. LABORATORY AND DIAGNOSTIC DATA: Showed CBC; white count 15.7, hemoglobin is 10.2. Arterial blood gas: pH 7.45, pCO2 of 30, pO2 of 140. Chemistry is remarkable for potassium 4.1, sodium 135, creatinine is 8, BUN is 129. Chest x-ray showed no acute pulmonary disease. Lung torres appear grossly clear bilaterally. ASSESSMENT: 1. Acute respiratory failure, hypercapnia and hypoxia. 2. Septic shock, currently resolved. 3. Cardiomyopathy. No evidence of congestive heart failure. 4. Acute kidney injury with azotemia. The patient is currently on dialysis. DISCUSSION: 1. NEUROLOGY/PSYCHIATRY: The patient's mental status appeared to be significantly improved, awake and alert. There are no focal signs. 2. CARDIOVASCULAR: The patient has systolic dysfunction with ejection fraction of 40. There is no evidence of congestive heart failure clinically. Chest x-ray is clear. 3. PULMONARY AND RESPIRATORY: The patient is intubated during weaning trials this morning. The patient is on bronchodilators. Chest x-ray appeared to be improved. 4. KIDNEY AND METABOLIC: The patient has end-stage renal disease. She has severe azotemia, although mental status is clearing. Continue dialysis as per nephrology. 5. GASTROINTESTINAL AND DIETARY: The patient is on tube feeding. She is tolerating it well and there is no GI bleed or abdominal pain. PROGRESS NOTE [id number] NATALIE QURESHI PLAN: 1. Continue antibiotics, Zithromax. 2. Continue tube feeding. 3. Weaning protocol. The patient, if successful, could be extubated. The ventilator could be taken off. Total time spent is 38 minutes discussing with nurse as well as family by the bedside. TRANSINT:[id number] Voice Confirmation ID: [id number] DOCUMENT ID: [id number] MICHAEL TODD at 0813 CC: [id number] DICTATION DATE: 03/29/18922 PATENT CHEMIST: 03/29/18 1422 ADM IN [place] [address] [place] [id number]
--- NOTE | ~2018-03-12 | PN ---
PATIENT:NATALIE QURESHI MEDICAL RECORD: [id number] LOCATION:D.ICU D.230 ADMISSION DATE: 03/12/18 PROGRESS NOTE DATE OF SERVICE: 03/28/2018 SUBJECTIVE: This is a 62-year-old female who was admitted with end-stage renal failure. The patient was found to have volume overload and arterial blood gases showed acute respiratory failure with hypoxemia. She was intubated as required, treated for further care. She has had bedside dialysis. The patient is beginning to open the eyes. She had an uneventful night. PHYSICAL EXAMINATION: GENERAL: Reveals a middle-aged female who appears to be older than stated age. VITAL SIGNS: Temperature 99, heart rate of 103, respiratory rate of 18, blood pressure 138/72. SHEENT: Unremarkable. NECK: Supple. CHEST: Showed some mild crackles bilaterally with increased airflow. HEART: Shows no jugular venous distention, murmur, or gallop. ABDOMEN: Benign, without any tenderness. EXTREMITIES: Shows upper extremity edema. LABORATORY DATA: Shows a white count of 15, hemoglobin 11.3, and platelet count of 303. Arterial blood gas: pH 7.45, pCO2 of 32, pO2 of 49 on 45%. Chemistries remarkable for potassium of 4, Sodium is 135, creatinine is 7.2, BUN is 112. Chest x-ray showed left lower lobe consolidation, possible small left pleural effusion. ASSESSMENT AND PLAN: 1. Acute respiratory failure with hypoxemia. The patient is on mechanical ventilation at this time. 2. End-stage renal disease. The patient is on dialysis at the bedside. 3. Pneumonia. The patient has had leukocytosis, may need to evaluate antibiotics. The Gram stain showed 1+ Evelyn tropicalis. This may need Diflucan. DISCUSSION: NEUROPSYCHIATRIC: The patient has no focal deficits. Mental status is improving. There is infection and also azotemia. CARDIOVASCULAR: This is stable. No apparent issues. PULMONARY AND RESPIRATORY: The patient has pneumonia and possibly fluid. RENAL AND METABOLIC: The patient will need induction of IV fluids. Continue hemodialysis. PLAN: 1. Stop gentamicin. 2. Diflucan. 3. Flagyl. 4. Continue DVT prophylaxis with heparin. 5. Continue insulin sliding scale. 6. Continue bronchodilators with DuoNeb. TRANSINT:[id number] Voice Confirmation ID: [id number] DOCUMENT ID: [id number] PROGRESS NOTE [id number] NATALIE QURESHI AUGUSTINE K at 0753 CC: [id number] DICTATION DATE: 03/28/18 1008 REGISTERED NURSE FETAL: 03/28/18 1213 ADM IN [facility] [address] [place] [place] [id number]
--- NOTE | ~2018-03-12 | HEMODYNAMI ---
PATIENT:NATALIE QURESHI MEDICAL RECORD: [id number] : 57 [facility]3 [id number] ADMISSION DATE: 03/12/18 Generatedon:03/16/20189:00 Patient name: NATALIE QURESHI Patient #: [id number] SSN: : 1955 Date of study: 03/16/2018 Page: Of Hemodynamic Procedure Report Patient Data Patient Demographics First Name: NATALIE Gender: Female Last Name: KIERA : 1955 Middle Initial: MARIXA Age: 62 year(s) Patient #: [id number] Race: Unknown Additional ID: [id number] Contact details Address: [address] [place] [address] State: [place] City: [place] Zip code: [address] Admission Admission Data Admission Date: 03/12/2018 Admission Time: 5:15 Room #: D.2303 Procedure Procedure Types Cath Procedure Peripheral Cath Diagnostic Procedure Fluoro Fluoro Needle Placement Procedure Description Procedure Date Procedure Date: 03/16/2018 Procedure Start Time: 8:45 Procedure Staff Name Function Bassam Lugo MD Performing Physician Simon Ward RT Monitor Kareen Yen RN Nurse Litzy French RT Scrub Procedure Data Cath Procedure Fluoroscopy Diagnostic fluoroscopy Total fluoroscopy Time: 0.3 time: 0.3 min min Diagnostic fluoroscopy Total fluoroscopy dose: 9 dose: 9 mGy mGy Hemodynamics Rest Heart Rate: 87 (bpm) Snapshots Pre Cath Intra NCS Post Cath Vital Signs Time Heart Resp SPO2 etCO2 NIBP Rhythm Pain Sedation Rate (ipm) (%) (mmHg) (mmHg) Status Level (bpm) 8:44:53 97 15 99 0 Measuring NSR 0 (11) 7(A) , No pain 8:45:40 98 16 99 0 104/67(74) NSR 0 (11) 7(A) , No pain 8:50:39 99 15 0 Measuring NSR 0 (11) 7(A) , No pain 8:51:09 98 15 0 105/68(85) NSR 0 (11) 7(A) , No pain 8:55:25 97 5 0 102/71(87) NSR 0 (11) 7(A) , No pain Procedure Log Time Note 8:32:42 Simon Sylvia RT (R) (CV) sent for patient. Start room use. 8:32:48 Time tracking: Regular hours (M-F 7:00 - 5:00) 8:33:10 Unable to provide pre-op teaching due to educational barrier. pt on vent 8:33:14 Family in waiting room. 8:33:16 Patient NPO since Midnight. 8:33:38 pt.on lovenox last dose 03-15-18 am 8:37:32 Is patient on blood thinner?Yes 8:37:38 ACC The patient was administered the following blood thiners within the last 24 hours: ACCLovenox 8:37:46 Lumbar area was prepped with betadine and draped in sterile fashion 8:43:03 Vital chart was started 8:44:19 Physician arrived 8:44:20 --------ALL STOP TIME OUT------ 8:44:21 Final Timeout: patient, procedure, and site verified with staff and physician. All members of the team are in agreement. 8:44:24 Lumbar site verified by team. 8:44:31 Sedation plan: Local Anesthetic Medication:Lidocaine 8:44:49 Baseline sample Acquired. 8:44:50 Full Disclosure recording started 8:44:56 Procedure started. 8:45:02 Local anesthetic to Lumbar area with Lidocaine 1% by Bassam Lugo MD.INITIAL ACCESS ONLY 8:55:36 fluid collected and sent to lab 8:58:49 Procedure ended.(Physican Out) 8:58:55 Fluoroscopy time 00.30 minutes. 8:59:02 Fluoroscopy dose: 9 mGy 8:59:02 Flurop Dose total: 9 8:59:06 Sharps counted by scrub and verified by R.N. 8:59:17 bandaide applied 8:59:23 Post Lumbar area:stable 8:59:28 Report given to ICU. 8:59:32 Patient transfered to ICU with Bed. 9:00:10 Vital chart was stopped Signature Audit [place] Stage Time Signature Unsigned Intra-Procedure 03/16/2018 Simon 9:00:08 AM Sylvia RT (R) (CV) Signatures Monitor : Simon Signature : Sylvia RT Date : Time : [address] [place] [address]
--- NOTE | ~2018-03-12 | CN ---
PATIENT NAME:NATALIE QURESHI MEDICAL RECORD: [id number] : 57 LOCATION:[facility].2303 ADMIT DATE: 03/12/18 ACCOUNT: [id number] CONSULTING PHYSICIAN: NATHANAEL CRUZ MD REFERRING PHYSICIAN: DWAYNE PASCUAL MD DATE OF CONSULTATION: 03/12/2018 CONSULT REQUESTING PHYSICIAN: Dwayne Pascual MD REASON FOR CONSULTATION: Vent management, status post cardiopulmonary arrest. HISTORY OF PRESENT ILLNESS: Ms. Qureshi is a 62-year-old female who has end-stage renal disease. The patient was transferred to the ICU with possible sepsis, hypotension. The patient became bradycardic and went into agonal breathing. Code blue was called. The patient was resuscitated and orally intubated. The history was taken mainly by reviewing the patient's note and talking to the nursing staff. REVIEW OF THE SYSTEMS: As in history of present illness. PAST MEDICAL HISTORY: 1. History of CVA in May 2012. 2. End-stage renal disease. 3. Diabetes mellitus. 4. Hypertension. 5. Coronary artery disease. 6. History of pneumonia. PAST SURGICAL HISTORY: 1. . 2. She had fistula placement for the dialysis. ALLERGIES: No known drug allergies. MEDICATIONS: AnyLeaf was reviewed. PERSONAL AND SOCIAL HISTORY: The detail is not obtainable. FAMILY HISTORY: Not obtainable. PHYSICAL EXAMINATION: GENERAL: Now, the patient is orally intubated and sedated. VITAL SIGNS: The blood pressure is 90s to 109 over 73, pulse is 39, temperature is 92.3, SpO2 is 93% on assist control mechanical ventilation. HEENT: Conjunctivae are pink. Sclerae are not icteric. NECK: Neck is supple. There is elevated JVD. CHEST: There are bilateral crackles. No wheezing. HEART: Rhythm regular. Normal heart sounds. No murmur. ABDOMEN: Abdomen is soft. Bowel sounds present. No hepatosplenomegaly. RECTAL: Deferred. EXTREMITIES: No cyanosis. No clubbing. There is 1+ pedal edema. RECTAL: Deferred. CENTRAL NERVOUS SYSTEM: The patient is orally intubated and sedated. LABORATORY DATA: CBC; the WBC is 24.2, hemoglobin 9, hematocrit 29.6, and CONSULT REPORT [id number] NATALIE QUREHSI platelet count is 55. Chemistry; sodium 134, potassium is 6, chloride 94, bicarb is 14.5, BUN is 37, creatinine 7.3. Lactic acid level 18.32. AST is 284 and ALT is 209. ABG; the pH is 7.02, pCO2 is 37.7, pO2 is 215, bicarb is 9.8. IMAGING: Chest radiograph; there is increased interstitial marking. There are bibasilar atelectasis. IMPRESSION: 1. Acute hypoxic, hypercapnic respiratory failure. 2. Metabolic acidosis secondary to lactic acidosis. 3. Septic shock. 4. Leukocytosis. 5. Pulmonary edema with basilar atelectasis, possible pneumonia. 6. End-stage renal disease. 7. Mental status changes secondary to sepsis, bradycardia, and hypotension. RECOMMENDATION: 1. Continue mechanical ventilation. I will adjust the setting. 2. Vancomycin IV and cefepime IV. Start Levaquin IV. 3. Pressor Levophed to keep the systolic blood pressure above 90. 4. GI bleed and stress ulcer prevention. 5. DVT prophylaxis. 6. Hemodialysis. 7. Bicarb drip. 8. Followup labs and chest radiograph. Dr. Pascual, thank you for involving me in the care of Ms. Qureshi. TRANSINT:[id number] Voice Confirmation ID: [id number] DOCUMENT ID: [id number] NATHANAEL CRUZ MD at 1110 CC: [id number] DICTATION DATE: 03/12/18 1206 SVP BUSINESS DEVELOPMENT: 03/12/18 1233 ADM IN [place] [id number] [place] [address]
--- NOTE | ~2018-03-12 | EC ---
PATIENT:NATALIE QURESHI DATE OF SERVICE: 03/12/18 SEX: F MEDICAL RECORD: [id number] DATE OF : 57 LOCATION:[facility] D230 AGE OF PATIENT: 62 ADMISSION DATE: 03/12/18 REFERRING PHYSICIAN: INTERPRETING PHYSICIAN: NYA LEDBETTER MD ECHOCARDIOGRAM REPORT ECHO CHARGES 4 ECHO COMPLETE Date: 03/12 CLINICAL DIAGNOSIS: SEPSIS ECHOCARDIOGRAPHIC MEASUREMENTS (adult normal given) AC root (d.<3.7cm) 2.8 cm LV Septum d (<1.2 cm> 1.9 cm Valve Excursion 1.0 cm LV Septum (systole) 2.0 cm Left Atria (s.<4.0cm> 3.3 cm LVPW d(<1.2cm) 1.8 cm RV (d.<2.3cm) 2.4 cm LVPW (sytole) 2.3 cm LV diastole(<5.6CM) 4.3 cm MV E-F(>70mm/sec) cm LV systole 2.8 cm LVOT Diameter 1.8 cm MV exc.(>10mm) cm Est.ejection fraction (50-75%) % DOPPLER: LVIT cm/sec A 134 cm/sec E 81.0 cm/sec LA cm/sec RVSP 30.4 mmHg LVOT 88.0 cm/sec AOP1/2T m/s Asc. Ao 219 cm/sec RVOT 69.0 cm/sec RA cm/sec PA 120 cm/sec AV Gradient Peak 19.2 mmHg AV Mean 12.0 mmHg AV Area 1.0 cm MV Gradient Peak 6.6 mmHg MV Mean 1.7 mmHg MV Area cm COMMENTS: Rn Dialysis: 1 BRAD DUNNOE Plaster Lather: 3 Dr. Heath TAPE# PACS Pericardial Effusion Y DATE OF SERVICE: Adequate 2-D, color flow and spectral Doppler, and M-mode. LVH is present. LV internal dimensions are normal. Wall motions appear to be mildly globally hypo with EF mildly reduced. Estimated EF is 40%. Aortic valve sclerosis without stenosis by Doppler interrogation. Left atrium normal at 3.3 cm. Mitral valve shows no prolapse. Trace MR. Right-sided chamber is normal. Mild TR by color flow imaging. ECHOCARDIOGRAM REPORT [id number] NATALIE QURESHI TRANSINT:[id number] Voice Confirmation ID: [id number] DOCUMENT ID: [id number] NYA LEDBETTER MD at 1505 CC: [id number] DICTATION DATE: 03/13/18 1531 TICKET WORKER: 03/13/18 1718 ADM IN [facility] [address] [place] [address]
--- NOTE | ~2018-03-12 | MORECARE ---
CASE MANAGEMENT DISCHARGE SUMMARY PATIENT: NATALIE QURESHI UNIT: [id number] ADM DATE: 03/12/18 AGE: 62 : 57 SEX: F ROOM/BED: D.2303 AUTHOR: CASE, HEALTH AND SAFETY ADVISOR PHYSICIAN: REFERRING PHYSICIAN: DWAYNE PASCUAL MD DATE OF SERVICE: 03/12/18 Discharge Plan Patient Name: NATALIE QURESHI Facility: [facility]:[place] : 1955 Planned Disposition: Home Anticipated Discharge Date: Discharge Date: Expected LOS: Initial Reviewer: [email or web address] Initial Review Date: 03/20/2018 Generated: 03/20/18 3:15 pm Patient Name: NATALIE QURESHI Page 12220 All edits/amendments must be made on the electronic document DICTATION DATE: 03/20/18 141 TRAIN BRAKE OPERATOR: 03/20/18 141 RPT#: [id number] IN DATE: STATUS: ADM IN [facility] [address] [place] [address] END OF REPORT
--- NOTE | ~2018-03-12 | PN ---
PATIENT:NATALIE QURESHI MEDICAL RECORD: [id number] LOCATION:D.ICU D.230 ADMISSION DATE: 03/12/18 PROGRESS NOTE DATE OF SERVICE: 03/24/2018 HISTORY: This is a 62-year-old female who has a history of COPD. The patient was admitted with acute hypoxic and hypercapnic respiratory failure and was noted to have a left lower lobe greater than right lower lobe pneumonia. The patient was intubated and currently on CPAP and pressure support trials. She has had ischemic cardiomyopathy with recurrent pulmonary edema. The patient is currently on antibiotics. The patient had an uneventful night. No fever or chills. PHYSICAL EXAMINATION: GENERAL: Reveals a middle-aged female who appears to be older than stated age. VITAL SIGNS: Temperature 98.8, heart rate of 78, respiratory rate of 23, blood pressure 111/67, pulse ox is 95%. HEENT: Unremarkable. The patient is normocephalic. Pupils are equal and reactive. Oral mucosa is mildly dry. NECK: Supple. There is no adenopathy. Trachea is midline. CHEST: Shows some mild crackles on deep coughing with no expectoration. No chest wall tenderness. There is no accessory muscle use. CARDIAC: Shows no jugular venous distention. No murmur or gallops. ABDOMEN: Benign. There is no tenderness, distention or masses. EXTREMITIES: Shows no clubbing, cyanosis or edema. LABORATORY DATA: Showed white count 17.5, hemoglobin 8.3, platelet count of 211,000. Cultures from bronchoscopy showed 1+ yeast. Chemistries showed sodium of 126, potassium 4.3, chloride is 87, creatinine is 9.4, BUN is 129, phosphorus is 12.8, magnesium 2.7, albumin is 1.6. ASSESSMENT AND PLAN: 1. Acute respiratory failure, hypercapnia and hypoxemia. Is currently on weaning trials of CPAP and pressure support. 2. Ischemic cardiomyopathy. The patient has ejection fraction of 40%, systolic dysfunction. She has had recurrent pulmonary edema. 3. Aspiration pneumonia which is more pronounced in the left lower lobe than the right lower lobe, which has been negative thus far. Has metabolic acidosis due to septic shock. 4. Skmmj-ru-cyzkorx renal failure with end-stage renal disease, followed by nephrology. 5. Hyponatremia. The patient has changes in mental status probably secondary to hyponatremia, metabolic or hypoxic encephalopathy. 6. Diabetes mellitus type 2, being treated with moderate sliding scale. 7. Anemia, probably chronic, secondary to renal failure. DISCUSSION: NEUROLOGY: Mental status. The patient's mental status was decreased, abnormal and no focal signs. It is probably secondary to metabolic or hypoxic encephalopathy, may also be due to hyponatremia. CARDIOVASCULAR: The patient has ischemic cardiomyopathy, has had pulmonary edema. PULMONARY/RESPIRATORY: The patient is on weaning protocol, pressure support and CPAP. PROGRESS NOTE [id number] NATALIE QURESHI GASTROINTESTINAL/DIETARY: The patient has no GI bleed, has chronic anemia. She is currently on Epogen subQ. PLAN: 1. Continue weaning process twice a day. Continue antibiotics. 2. If need be, use vasopressin to maintain systolic blood pressure. 3. Deep venous thrombosis and GI stress prophylaxis. 4. Renal failure followed by nephrology. 5. Sliding scale insulin. May need to change to Precedex for sedation. TRANSINT:[id number] Voice Confirmation ID: [id number] DOCUMENT ID: [id number] MICHAEL TODD at 0755 CC: [id number] DICTATION DATE: 03/24/18 1443 SCRAP HANDLER: 03/24/18 1756 ADM IN [facility] [address] [place] [address]
--- NOTE | ~2018-03-12 | PN ---
PATIENT:NATALIE QURESHI MEDICAL RECORD: [id number] LOCATION:D.ICU D.230 ADMISSION DATE: 03/12/18 PROGRESS NOTE DATE OF SERVICE: 03/27/2018 SUBJECTIVE: This is a 62-year-old female who was admitted with acute respiratory failure, hypoxemia. The patient was also noted to have acute kidney injury. She was intubated and had a recent trach care. Dialysis has been initiated, but was unsuccessful yesterday because of underlying clotting. The patient is sedated. There is no fever or chills. Bumex was given with no significant improvement in urinary output. Family discussing what to do if dialysis did not work. PHYSICAL EXAMINATION: GENERAL: Reveals a middle-aged female, who is sedated on ventilator. VITAL SIGNS: Temperature 100.2, pulse rate of 107, respiratory rate of 23, blood pressure 153/76, saturation 97. SHEENT: Unremarkable. NECK: Supple. Has a trach with some old blood. CHEST: Showed bilateral crackles. HEART: Shows no jugular venous distention, murmur, or gallops. ABDOMEN: Benign, without any tenderness. EXTREMITIES: Shows no clubbing, cyanosis or edema. LABORATORY DATA: Show white count of 15,000, hemoglobin is 11.4, platelet count is 254,000. Arterial blood gas: pH 7.45, pCO2 of 28, pO2 of 95% on 30% FIO2. Chest x-ray showed clear lungs. ASSESSMENT: 1. Acute respiratory failure with hypoxia. The patient is on mechanical ventilation, status post trach care. 2. Acute kidney injury, possibly end stage. Hemodialysis has not been successful. 3. Mild anemia probably from chronic disease. DISCUSSION: NEUROPSYCHIATRIC: No focal signs. The patient is sedated on a ventilator. CARDIOVASCULAR: No cardiovascular issues. PULMONARY/RESPIRATORY: The patient is on mechanical ventilator. KIDNEYS/METABOLIC: Has progressive renal failure. GASTROINTESTINAL AND DIETARY: There is no GI bleed. There is no abdominal pain. The patient is on tube feeding. PLAN: 1. Continue ventilatory support. 2. Weaning procedure. 3. Continue bronchodilators. 4. Continue dialysis. TRANSINT:[id number] Voice Confirmation ID: [id number] DOCUMENT ID: [id number] PROGRESS NOTE [id number] NATALIE QURESHI MICHAEL TODD at 0751 CC: [id number] DICTATION DATE: 03/27/18 1105 TRAVEL ATTENDANTS: 03/27/18 [address] [facility] [address] [place] [id number]
--- NOTE | ~2018-03-12 | OP ---
PATIENT NAME: NATALIE QURESHI MEDICAL RECORD: [id number] :57 LOCATION:.[facility] D.2303 ADMISSION DATE:03/12/18 SURGEON: MEHDI LUNA MD DATE OF OPERATION: 03/25/2018 PREOPERATIVE DIAGNOSES: 1. Respiratory failure on the ventilator. 2. End-stage renal disease, on hemodialysis. 3. Hypertension. 4. Diabetes mellitus. 5. Anemia of chronic kidney disease. 6. Sepsis. POSTOPERATIVE DIAGNOSES: 1. Respiratory failure on the ventilator. 2. End-stage renal disease, on hemodialysis. 3. Hypertension. 4. Diabetes mellitus. 5. Anemia of chronic kidney disease. 6. Sepsis. PROCEDURES: 1. 8-Swazi percutaneous trach placement. 2. PEG tube placement. SURGEON: Mehdi Luna MD MIDDLE STITCHER: Morena Davila APRN REPORT OF OPERATION: The patient's neck was prepped and draped in sterile fashion. A bronchoscope was advanced through the indwelling endotracheal tube and endotracheal tube was backed up until we could see just distal to the cricopharyngeal ring. A skin incision was made on the inferior aspect of the patient's neck in the midline and using blunt dissection, I was able to find a way to the trachea. Between what was felt to be the second and third tracheal ring, we penetrated through under direct visualization with an Angiocath needle and advanced a wire. Over this wire, a dilator was placed followed by the Rhino dilator. Over the wire, we then placed the 8-Swazi trach. The balloon was insufflated and we reinspected through the trachea and it was noted to be in good position. We then sutured the trach down into place with 2-0 nylons on all 4 corners. We then advanced then an endoscope down through the mouth and esophagus and found an area on the antrum of the stomach to house our PEG tube. We prepped the stomach and then infused a total of 5 mL of 1% lidocaine. A skin incision was made with an 11 blade and we penetrated through the skin into the gastric lumen using an Angiocath needle. Through this needle, a wire was advanced and grasped with an Endo snare. We pulled the snare and a wire through the mouth and esophagus and affixed this to the PEG tube. The PEG tube was pulled through the mouth and esophagus through the abdominal wall until it was resting in good position at 5 cm at the skin. This was affixed into place and dressed appropriately. OPERATIVE REPORT [id number] NATALIE QURESHI COMPLICATIONS: None. CONDITION: Stable. ANESTHESIA: General endotracheal. BLOOD LOSS: 50 mL. TRANSINT:[id number] Voice Confirmation ID: [id number] DOCUMENT ID: [id number] MEHDI LUNA MD at 0918 CC: [id number] DICTATION DATE: 03/25/18 1655 INVESTIGATOR FRAUD: 03/25/18 2212 ADM IN [facility] [address] [place] [id number]
--- NOTE | ~2018-03-12 | PN ---
PATIENT:NATALIE QURESHI MEDICAL RECORD: [id number] LOCATION:D.ICU D.230 ADMISSION DATE: 03/12/18 PROGRESS NOTE DATE OF SERVICE: 03/25/2018 HISTORY OF PRESENT ILLNESS: This is a 62-year-old female who was admitted with hypertension, hypothermic, and bradycardic. The patient was felt to have sepsis and was given IV fluids as well as antibiotics. The patient has had a history of end-stage renal disease, on dialysis. She was intubated. The patient has been doing well on the ventilator. She has also had chronic anemia and white count has been improving. She has also had hyponatremia. PHYSICAL EXAMINATION: GENERAL: Reveals a middle-aged female who is in no acute distress. VITAL SIGNS: Heart rate of 98, respiratory rate 22, blood pressure 155/77. She is afebrile. SHEENT: Unremarkable. NECK: Supple. There is no adenopathy. Trachea is midline. CHEST: Shows some mild crackle. Showed persistent perihilar edema. The patient is currently on hemodialysis in the ICU done 2 days ago. The patient also had trach yesterday. HEART: Shows no jugular venous distention, murmur or gallops. ABDOMEN: Benign and nontender. EXTREMITIES: Shows no clubbing, cyanosis or edema. LABORATORY DATA: Bronchial washings were negative. ASSESSMENT AND PLAN: 1. Acute respiratory failure with hypercapnia and hypoxia secondary to sepsis and end-stage renal disease and hypervolemia. 2. End-stage renal disease, on dialysis. 3. Status post trach. 4. Pneumonia. DISCUSSION: 1. Neuropsychiatry: The patient has had stroke in the past, but currently she does not show any focal signs. Mental status is decreased probably from renal disease and sedation. 2. Hyponatremia. 3. Pneumonia with leukocytosis. 4. Cardiovascular: No significant issues. 5. Pulmonary and respiratory: The patient has pneumonia and possibly volume overload from renal failure. 6. Dietary: Gastrointestinal: The patient has been evaluated for tube feeding. Plan ventilatory support. 7. Dialysis as needed. 8. DVT prophylaxis. 9. Continue antibiotics. 10. Check electrolytes from today. TRANSINT:[id number] Voice Confirmation ID: [id number] DOCUMENT ID: [id number] PROGRESS NOTE [id number] NATALIE QURESHI MICHAEL TODD at 0754 CC: [id number] DICTATION DATE: 03/25/18 1303 SASH CLAMP OPERATOR: 03/25/18 1407 ADM IN [place] [id number] [facility]
[~2018-03-12 04:45] MED LIST changes: +CATAPRES0.1 MG PO; +DIOVAN320 MG PO; +FERROUS SULFAT325 MG PO; +HYDRALAZINE HCL50 MG PO; +NOVOLOG100 U/M1 SC; +ZOCOR20 MG PO; +ZOFRAN8 MG PO
[2018-03-12 07:16] LABS: ALBUMIN 3.1 g/dL (3.4-5.0); ANION GAP 31.2 mmol/L (8-16); BILIRUBIN - TOTAL 1.02 mg/dL (0.2-1.3); CALCIUM 9.3 mg/dL (8.5-10.1); CARBON DIOXIDE 14.8 mmol/L (21.0-32.0); CREATININE - SERUM 7.3 mg/dL (0.6-1.3); MAGNESIUM - SERUM 2.4 mg/dL (1.8-2.4); PHOSPHOROUS 11.2 mg/dL (2.5-4.9); PROTEIN - SERUM 6.6 g/dL (6.4-8.2)
[2018-03-12 07:59] LABS: ALBUMIN 2.3 g/dL (3.4-5.0); ANION GAP 31.5 mmol/L (8-16); BILIRUBIN - TOTAL 0.9 mg/dL (0.2-1.3); CALCIUM 9.4 mg/dL (8.5-10.1); CARBON DIOXIDE 14.5 mmol/L (21.0-32.0); CREATININE - SERUM 7.3 mg/dL (0.6-1.3); PROTEIN - SERUM 5.6 g/dL (6.4-8.2)
[2018-03-12 08:32] LABS: HEMATOCRIT 29.6 % (36.0-48.0); MCH 28.3 pg (26.0-34.0); MCHC 30.4 g/dL (31.0-37.0); MCV 93.1 fL (80.0-100.0); MEAN PLATELET VOLUME 10.5 fL (7.4-10.4); PLATELET COUNT 55 10x3/uL (130-400); RBC 3.18 10x6/uL (4.00-5.40); WBC 24.2 10x3/uL (4.8-10.8)
[2018-03-12 08:36] LABS: LYMPHOCYTES 20 % (15-50); MONOCYTES 2 % (2-11); NEUTROPHILS 69 % (40-80); PLATELET ESTIMATE DECREASED; ROULEAUX OCC; SMUDGE CELLS OCC
[2018-03-13] VITALS (26 sets, daily range): BP systolic 105–160; BP diastolic 62–761
[2018-03-13 04:52] LABS: BASOPHILS 0.1 % (0-2); EOSINOPHILS 0.3 % (0-7); HEMATOCRIT 24.4 % (36.0-48.0); IMMATURE GRANULOCYTES 0.4 % (0-5); LYMPHOCYTES 9.6 % (15-50); MCH 28.8 pg (26.0-34.0); MCHC 32.8 g/dL (31.0-37.0); MEAN PLATELET VOLUME 11.3 fL (7.4-10.4); MONOCYTES 2.3 % (2-11); NEUTROPHILS 87.3 % (40-80); RBC 2.78 10x6/uL (4.00-5.40); RDW 14.8 % (11.5-14.5)
[2018-03-13 04:56] LABS: WBC 17.1 10x3/uL (4.8-10.8)
[2018-03-13 04:57] LABS: MCV 87.8 fL (80.0-100.0); PLATELET COUNT 132 10x3/uL (130-400)
[2018-03-13 05:05] LABS: CALCIUM 8.3 mg/dL (8.5-10.1)
[2018-03-13 05:18] LABS: ANION GAP 9.5 mmol/L (8-16); CARBON DIOXIDE 33.9 mmol/L (21.0-32.0); CREATININE - SERUM 4.3 mg/dL (0.6-1.3); PHOSPHOROUS 3.3 mg/dL (2.5-4.9); POTASSIUM - SERUM 3.4 mmol/L (3.5-5.1)
[2018-03-13 05:42] LABS: VANCOMYCIN - RANDOM 11.8 ug/mL (10.0-20.0)
[2018-03-14] VITALS (23 sets, daily range): BP systolic 102–172; BP diastolic 53–107
[2018-03-14] MEDS ORDERED: LASIX80 MG PO (01:53)
[2018-03-14] MEDS ORDERED: LIPITOR20 MG (01:56)
[2018-03-14] MEDS ORDERED: ATIVAN0.5 MG PO (01:57)
[2018-03-14] MEDS ORDERED: PAXIL20 MG (01:58)
[2018-03-14 04:07] LABS: BASOPHILS 0.1 % (0-2); EOSINOPHILS 0.7 % (0-7); HEMOGLOBIN 8.1 g/dL (12-16); IMMATURE GRANULOCYTES 0.9 % (0-5); LYMPHOCYTES 13.8 % (15-50); MCH 28.9 pg (26.0-34.0); MCHC 32.4 g/dL (31.0-37.0); MCV 89.3 fL (80.0-100.0); MEAN PLATELET VOLUME 11.2 fL (7.4-10.4); MONOCYTES 3.4 % (2-11); NEUTROPHILS 81.1 % (40-80); RDW 15.2 % (11.5-14.5); WBC 17.3 10x3/uL (4.8-10.8)
[2018-03-14 04:10] LABS: PLATELET COUNT 181 10x3/uL (130-400)
[2018-03-14 04:20] LABS: % SATURATION 74 % (15-55); IRON 114 ug/dl (35-150); TOTAL IRON BIND CAPACITY 154 ug/dl (260-445); UNSAT IRON BIND CAPACITY 40 ug/dl (150-375)
[2018-03-14 04:54] LABS: CALCIUM 8.1 mg/dL (8.5-10.1); CARBON DIOXIDE 33.1 mmol/L (21.0-32.0); PHOSPHOROUS 3.3 mg/dL (2.5-4.9); VANCOMYCIN - RANDOM 25.3 ug/mL (10.0-20.0)
[2018-03-14 04:55] LABS: CREATININE - SERUM 6.8 mg/dL (0.6-1.3)
[2018-03-14 04:59] LABS: ANION GAP 10.7 mmol/L (8-16); POTASSIUM - SERUM 2.8 mmol/L (3.5-5.1)
[2018-03-15] VITALS (24 sets, daily range): BP systolic 97–155; BP diastolic 53–94
[2018-03-15 04:57] LABS: BASOPHILS 0.1 % (0-2); EOSINOPHILS 1.6 % (0-7); IMMATURE GRANULOCYTES 1.1 % (0-5); LYMPHOCYTES 16.6 % (15-50); MCH 28.6 pg (26.0-34.0); MCHC 32.5 g/dL (31.0-37.0); MEAN PLATELET VOLUME 10.6 fL (7.4-10.4); MONOCYTES 5.6 % (2-11); PLATELET COUNT 164 10x3/uL (130-400); RDW 16.1 % (11.5-14.5)
[2018-03-15 05:11] LABS: HEMATOCRIT 30.8 % (36.0-48.0)
[2018-03-15 05:19] LABS: ANION GAP 8.3 mmol/L (8-16); CALCIUM 8.5 mg/dL (8.5-10.1); CARBON DIOXIDE 31.9 mmol/L (21.0-32.0); CREATININE - SERUM 5.4 mg/dL (0.6-1.3); POTASSIUM - SERUM 3.2 mmol/L (3.5-5.1)
[2018-03-15 05:20] LABS: PHOSPHOROUS 2.3 mg/dL (2.5-4.9)
[2018-03-16] VITALS (24 sets, daily range): BP systolic 108–175; BP diastolic 64–97
[2018-03-16 05:03] LABS: BASOPHILS 0.1 % (0-2); EOSINOPHILS 3.1 % (0-7); HEMOGLOBIN 10.3 g/dL (12-16); IMMATURE GRANULOCYTES 2.9 % (0-5); LYMPHOCYTES 9.9 % (15-50); MCH 28.4 pg (26.0-34.0); MCHC 32.2 g/dL (31.0-37.0); MCV 88.2 fL (80.0-100.0); MEAN PLATELET VOLUME 11.5 fL (7.4-10.4); MONOCYTES 11.9 % (2-11); NEUTROPHILS 72.1 % (40-80); PLATELET COUNT 148 10x3/uL (130-400); RBC 3.63 10x6/uL (4.00-5.40); RDW 16.2 % (11.5-14.5); WBC 15.1 10x3/uL (4.8-10.8)
[2018-03-16 05:14] LABS: INR 1.13 (0.85-1.17); PROTIME 14.1 SECONDS (11.6-15.0)
[2018-03-16 05:15] LABS: APTT 31.5 SECONDS (22.8-39.4)
[2018-03-16 05:19] LABS: ANION GAP 11.3 mmol/L (8-16); CALCIUM 8.8 mg/dL (8.5-10.1); CARBON DIOXIDE 30.6 mmol/L (21.0-32.0)
[2018-03-16 05:23] LABS: CREATININE - SERUM 7.3 mg/dL (0.6-1.3); PHOSPHOROUS 3.9 mg/dL (2.5-4.9); POTASSIUM - SERUM 3.9 mmol/L (3.5-5.1)
[2018-03-16 09:41] LABS: GLUCOSE - CSF 118 MG/DL (40-75); PROTEIN - CSF 60 MG/DL (12-60)
[2018-03-16 09:48] LABS: APPEARANCE - CSF CLEAR
[2018-03-16 09:49] LABS: RBC - CSF 7 cmm (0-0)
[2018-03-17] VITALS (24 sets, daily range): BP systolic 103–154; BP diastolic 66–84
[2018-03-17 06:07] LABS: BASOPHILS 0.1 % (0-2); EOSINOPHILS 3.5 % (0-7); HEMATOCRIT 31.7 % (36.0-48.0); HEMOGLOBIN 10.3 g/dL (12-16); IMMATURE GRANULOCYTES 3.4 % (0-5); MCH 28.4 pg (26.0-34.0); MCHC 32.5 g/dL (31.0-37.0); MCV 87.3 fL (80.0-100.0); MEAN PLATELET VOLUME 12.2 fL (7.4-10.4); MONOCYTES 13.9 % (2-11); NEUTROPHILS 71.1 % (40-80); RBC 3.63 10x6/uL (4.00-5.40); RDW 16.3 % (11.5-14.5); WBC 16.4 10x3/uL (4.8-10.8)
[2018-03-17 06:23] LABS: PLATELET COUNT 111 10x3/uL (130-400)
[2018-03-17 06:39] LABS: ANION GAP 15.7 mmol/L (8-16); CALCIUM 9.1 mg/dL (8.5-10.1); CREATININE - SERUM 8.5 mg/dL (0.6-1.3); PHOSPHOROUS 4.6 mg/dL (2.5-4.9); POTASSIUM - SERUM 3.7 mmol/L (3.5-5.1)
[2018-03-17 07:47] LABS: BILIRUBIN - DIRECT 0.84 mg/dL (0.00-0.30); BILIRUBIN - INDIRECT 0.37 mg/dL (0.00-1.00); BILIRUBIN - TOTAL 1.21 mg/dL (0.2-1.3); PROTEIN - SERUM 5.4 g/dL (6.4-8.2); VANCOMYCIN - RANDOM 13.6 ug/mL (10.0-20.0)
[2018-03-18] VITALS (23 sets, daily range): BP systolic 92–155; BP diastolic 50–76
[2018-03-18 05:34] LABS: BASOPHILS 0.3 % (0-2); EOSINOPHILS 3.7 % (0-7); HEMATOCRIT 32.1 % (36.0-48.0); HEMOGLOBIN 10.5 g/dL (12-16); IMMATURE GRANULOCYTES 6.3 % (0-5); LYMPHOCYTES 9.9 % (15-50); MCH 29.3 pg (26.0-34.0); MCHC 32.7 g/dL (31.0-37.0); MEAN PLATELET VOLUME 13.2 fL (7.4-10.4); NEUTROPHILS 69.8 % (40-80); PLATELET COUNT 89 10x3/uL (130-400); RBC 3.58 10x6/uL (4.00-5.40); RDW 17.1 % (11.5-14.5); WBC 19.3 10x3/uL (4.8-10.8)
[2018-03-18 05:35] LABS: MCV 89.7 fL (80.0-100.0)
[2018-03-18 05:40] LABS: ANION GAP 14.5 mmol/L (8-16); BILIRUBIN - DIRECT 0.7 mg/dL (0.00-0.30); BILIRUBIN - INDIRECT 0.56 mg/dL (0.00-1.00); BILIRUBIN - TOTAL 1.26 mg/dL (0.2-1.3); CALCIUM 8.7 mg/dL (8.5-10.1); CARBON DIOXIDE 27.2 mmol/L (21.0-32.0); MAGNESIUM - SERUM 1.9 mg/dL (1.8-2.4); PHOSPHOROUS 5.1 mg/dL (2.5-4.9); POTASSIUM - SERUM 3.7 mmol/L (3.5-5.1); PROTEIN - SERUM 6.4 g/dL (6.4-8.2); VANCOMYCIN - RANDOM 28.4 ug/mL (10.0-20.0)
[2018-03-18 05:41] LABS: FIBRINOGEN 721 mg/dL (239-481); INR 1.02 (0.85-1.17)
[2018-03-18 05:42] LABS: APTT 34.4 SECONDS (22.8-39.4)
[2018-03-18 06:57] LABS: D-DIMER-QUANTITATIVE > 20.00 ug/mLFEU (0.20-0.54)
[2018-03-18 20:08] LABS: AFB SPECIMEN PROCESSING Not Indicated (())
[2018-03-19] VITALS (24 sets, daily range): BP systolic 98–170; BP diastolic 53–91
[2018-03-19 04:30] LABS: BASOPHILS 0.3 % (0-2); EOSINOPHILS 2.9 % (0-7); HEMATOCRIT 31.7 % (36.0-48.0); HEMOGLOBIN 10.4 g/dL (12-16); IMMATURE GRANULOCYTES 6.8 % (0-5); MCH 29.2 pg (26.0-34.0); MCHC 32.8 g/dL (31.0-37.0); MEAN PLATELET VOLUME 12.1 fL (7.4-10.4); MONOCYTES 9.6 % (2-11); NEUTROPHILS 71.4 % (40-80); PLATELET COUNT 100 10x3/uL (130-400); RBC 3.56 10x6/uL (4.00-5.40); RDW 17.3 % (11.5-14.5); WBC 19.3 10x3/uL (4.8-10.8)
[2018-03-19 04:59] LABS: ALBUMIN 1.9 g/dL (3.4-5.0); BILIRUBIN - DIRECT 0.6 mg/dL (0.00-0.30); BILIRUBIN - INDIRECT 0.4 mg/dL (0.00-1.00); CALCIUM 8.9 mg/dL (8.5-10.1); CARBON DIOXIDE 22.1 mmol/L (21.0-32.0); CREATININE - SERUM 8.2 mg/dL (0.6-1.3); PROTEIN - SERUM 6.3 g/dL (6.4-8.2)
[2018-03-19 05:05] LABS: ANION GAP 20.8 mmol/L (8-16); PHOSPHOROUS 7.6 mg/dL (2.5-4.9); POTASSIUM - SERUM 4.9 mmol/L (3.5-5.1)
[2018-03-19 14:30] LABS: FUNGUS STAIN Final report (())
[2018-03-19 15:25] LABS: IGGS - IGG INDEX CSF 0.5 (0.0-0.7); IGGS - IGG SYNTHESIS RATE CSF 1.7 mg/day (-9.9 TO +3.3)
[2018-03-19 19:13] LABS: HSV 1 DNA (PCR) Negative (Negative); HSV 2 DNA (PCR) Negative (Negative)
[2018-03-20] VITALS (23 sets, daily range): BP systolic 110–181; BP diastolic 61–99
[2018-03-20 03:51] LABS: BASOPHILS 0.4 % (0-2); EOSINOPHILS 1.5 % (0-7); HEMATOCRIT 29.6 % (36.0-48.0); HEMOGLOBIN 9.8 g/dL (12-16); IMMATURE GRANULOCYTES 5.5 % (0-5); LYMPHOCYTES 7.3 % (15-50); MCHC 33.1 g/dL (31.0-37.0); MCV 87.6 fL (80.0-100.0); MEAN PLATELET VOLUME 11.9 fL (7.4-10.4); MONOCYTES 13.4 % (2-11); NEUTROPHILS 71.9 % (40-80); RBC 3.38 10x6/uL (4.00-5.40); RDW 17.4 % (11.5-14.5); WBC 19.7 10x3/uL (4.8-10.8)
[2018-03-20 03:52] LABS: PLATELET COUNT 123 10x3/uL (130-400)
[2018-03-20 04:00] LABS: ALBUMIN 1.8 g/dL (3.4-5.0); BILIRUBIN - DIRECT 0.38 mg/dL (0.00-0.30); BILIRUBIN - INDIRECT 0.32 mg/dL (0.00-1.00); BILIRUBIN - TOTAL 0.7 mg/dL (0.2-1.3); CREATININE - SERUM 7.6 mg/dL (0.6-1.3); PHOSPHOROUS 6.7 mg/dL (2.5-4.9); PROTEIN - SERUM 6.2 g/dL (6.4-8.2)
[2018-03-21] VITALS (23 sets, daily range): BP systolic 140–189; BP diastolic 75–95
[2018-03-21 04:31] LABS: BASOPHILS 0.5 % (0-2); EOSINOPHILS 1.3 % (0-7); HEMATOCRIT 33.2 % (36.0-48.0); IMMATURE GRANULOCYTES 5.5 % (0-5); LYMPHOCYTES 18.2 % (15-50); MCHC 33.1 g/dL (31.0-37.0); MCV 87.6 fL (80.0-100.0); MEAN PLATELET VOLUME 11.2 fL (7.4-10.4); MONOCYTES 10.8 % (2-11); NEUTROPHILS 63.7 % (40-80); PLATELET COUNT 155 10x3/uL (130-400); RBC 3.79 10x6/uL (4.00-5.40); RDW 17.2 % (11.5-14.5); WBC 23.7 10x3/uL (4.8-10.8)
[2018-03-21 04:56] LABS: ALBUMIN 2.1 g/dL (3.4-5.0); ANION GAP 22.3 mmol/L (8-16); BILIRUBIN - DIRECT 0.36 mg/dL (0.00-0.30); BILIRUBIN - INDIRECT 0.35 mg/dL (0.00-1.00); BILIRUBIN - TOTAL 0.71 mg/dL (0.2-1.3); CALCIUM 9.9 mg/dL (8.5-10.1); CARBON DIOXIDE 21.5 mmol/L (21.0-32.0); CREATININE - SERUM 9.2 mg/dL (0.6-1.3); POTASSIUM - SERUM 3.8 mmol/L (3.5-5.1)
[2018-03-21 05:00] LABS: PHOSPHOROUS 9.3 mg/dL (2.5-4.9)
[2018-03-22] VITALS (24 sets, daily range): BP systolic 99–171; BP diastolic 54–95
[2018-03-22 03:10] LABS: RMSF IGM 0.23 index (0.00-0.89)
[2018-03-22 04:18] LABS: BASOPHILS 0.1 % (0-2); EOSINOPHILS 0.4 % (0-7); HEMATOCRIT 27.7 % (36.0-48.0); HEMOGLOBIN 9.1 g/dL (12-16); IMMATURE GRANULOCYTES 1.6 % (0-5); LYMPHOCYTES 5.1 % (15-50); MCH 28.8 pg (26.0-34.0); MCHC 32.9 g/dL (31.0-37.0); MCV 87.7 fL (80.0-100.0); MEAN PLATELET VOLUME 11.1 fL (7.4-10.4); MONOCYTES 10.6 % (2-11); NEUTROPHILS 82.2 % (40-80); PLATELET COUNT 159 10x3/uL (130-400); RBC 3.16 10x6/uL (4.00-5.40); RDW 17.4 % (11.5-14.5); WBC 24.5 10x3/uL (4.8-10.8)
[2018-03-22 04:31] LABS: ANION GAP 20.1 mmol/L (8-16); CALCIUM 8.8 mg/dL (8.5-10.1); CARBON DIOXIDE 23.6 mmol/L (21.0-32.0); PHOSPHOROUS 7.1 mg/dL (2.5-4.9); POTASSIUM - SERUM 3.7 mmol/L (3.5-5.1)
[2018-03-22 04:35] LABS: CREATININE - SERUM 6.4 mg/dL (0.6-1.3)
[2018-03-22 19:08] LABS: AFB SPECIMEN PROCESSING Concentration (())
[2018-03-23] VITALS (23 sets, daily range): BP systolic 97–163; BP diastolic 55–90
[2018-03-23 03:57] LABS: BASOPHILS 0.2 % (0-2); EOSINOPHILS 0.7 % (0-7); HEMATOCRIT 24.5 % (36.0-48.0); HEMOGLOBIN 8.1 g/dL (12-16); IMMATURE GRANULOCYTES 1.4 % (0-5); LYMPHOCYTES 9.5 % (15-50); MCH 28.8 pg (26.0-34.0); MCHC 33.1 g/dL (31.0-37.0); MCV 87.2 fL (80.0-100.0); MEAN PLATELET VOLUME 11.2 fL (7.4-10.4); MONOCYTES 12.3 % (2-11); NEUTROPHILS 75.9 % (40-80); PLATELET COUNT 189 10x3/uL (130-400); RBC 2.81 10x6/uL (4.00-5.40); RDW 17.1 % (11.5-14.5); WBC 18.4 10x3/uL (4.8-10.8)
[2018-03-23 04:14] LABS: ANION GAP 16.9 mmol/L (8-16); BILIRUBIN - TOTAL 0.57 mg/dL (0.2-1.3); CALCIUM 8.9 mg/dL (8.5-10.1); CARBON DIOXIDE 25.1 mmol/L (21.0-32.0); MAGNESIUM - SERUM 2.4 mg/dL (1.8-2.4); PROTEIN - SERUM 5.6 g/dL (6.4-8.2)
[2018-03-23 04:28] LABS: ALBUMIN 1.5 g/dL (3.4-5.0); CREATININE - SERUM 8.3 mg/dL (0.6-1.3); PHOSPHOROUS 9.7 mg/dL (2.5-4.9)
[2018-03-23 09:29] LABS: APPEARANCE CLEAR (CLEAR); BILIRUBIN NEGATIVE (NEGATIVE); COLOR YELLOW (YELLOW); GLUCOSE 1000 mg/dL (NEGATIVE); KETONE NEGATIVE (NEGATIVE); NITRITE NEGATIVE (NEGATIVE); PROTEIN 3+ mg/dL (NEGATIVE); UROBILINOGEN NORMAL (NORMAL)
[2018-03-23 09:32] LABS: BACTERIA FEW /hpf (NONE SEEN); EPITHELIAL CELLS 0-5 /hpf (0-5); RED CELLS - URINE 0-5 /hpf (0-5); WHITE CELLS - URINE 0-5 /hpf (0-5)
[2018-03-24] VITALS (24 sets, daily range): BP systolic 102–170; BP diastolic 61–82
[2018-03-24 04:34] LABS: BASOPHILS 0.3 % (0-2); EOSINOPHILS 2.6 % (0-7); HEMOGLOBIN 8.3 g/dL (12-16); IMMATURE GRANULOCYTES 1.9 % (0-5); LYMPHOCYTES 10.5 % (15-50); MCH 28.6 pg (26.0-34.0); MCHC 33.2 g/dL (31.0-37.0); MCV 86.2 fL (80.0-100.0); MEAN PLATELET VOLUME 11.5 fL (7.4-10.4); MONOCYTES 11.1 % (2-11); NEUTROPHILS 73.6 % (40-80); PLATELET COUNT 211 10x3/uL (130-400); RDW 16.7 % (11.5-14.5); WBC 17.5 10x3/uL (4.8-10.8)
[2018-03-24 05:19] LABS: ALBUMIN 1.6 g/dL (3.4-5.0); ANION GAP 22.9 mmol/L (8-16); BILIRUBIN - TOTAL 0.61 mg/dL (0.2-1.3); CALCIUM 8.8 mg/dL (8.5-10.1); CARBON DIOXIDE 20.4 mmol/L (21.0-32.0); CREATININE - SERUM 9.4 mg/dL (0.6-1.3); MAGNESIUM - SERUM 2.7 mg/dL (1.8-2.4); POTASSIUM - SERUM 4.3 mmol/L (3.5-5.1); PROTEIN - SERUM 5.7 g/dL (6.4-8.2)
[2018-03-24 05:40] LABS: PHOSPHOROUS 12.8 mg/dL (2.5-4.9)
[2018-03-24 13:17] LABS: FUNGUS STAIN Final report (())
[2018-03-24 15:25] LABS: EHRLICHIA CHAFF IGG Negative (Neg:<1:64); EHRLICHIA CHAFF IGM Negative (Neg:<1:20); HGE IGG TITER Negative (Neg:<1:64); HGE IGM TITER Negative (Neg:<1:20)
[2018-03-25] VITALS (22 sets, daily range): BP systolic 141–170; BP diastolic 63–88
[2018-03-25 12:18] LABS: F. TULARENSIS - IGG See below: (()); F. TULARENSIS - IGM Negative (())
[2018-03-25 13:18] LABS: ANA REFLEX - DIRECT Negative (Negative)
[2018-03-25 14:38] LABS: BASOPHILS 0.3 % (0-2); EOSINOPHILS 1.8 % (0-7); IMMATURE GRANULOCYTES 1.5 % (0-5); LYMPHOCYTES 14.6 % (15-50); MCH 29.2 pg (26.0-34.0); MCHC 34.4 g/dL (31.0-37.0); MCV 84.8 fL (80.0-100.0); MEAN PLATELET VOLUME 11.9 fL (7.4-10.4); MONOCYTES 8.1 % (2-11); NEUTROPHILS 73.7 % (40-80); PLATELET COUNT 212 10x3/uL (130-400); RDW 16.5 % (11.5-14.5); WBC 15.1 10x3/uL (4.8-10.8)
[2018-03-25 14:43] LABS: HEMATOCRIT 33.4 % (36.0-48.0); HEMOGLOBIN 11.5 g/dL (12-16); RBC 3.94 10x6/uL (4.00-5.40)
[2018-03-25 14:50] LABS: ALBUMIN 1.7 g/dL (3.4-5.0); ANION GAP 21.2 mmol/L (8-16); BILIRUBIN - TOTAL 0.69 mg/dL (0.2-1.3); CALCIUM 8.8 mg/dL (8.5-10.1); CARBON DIOXIDE 22.1 mmol/L (21.0-32.0); CREATININE - SERUM 7.8 mg/dL (0.6-1.3); MAGNESIUM - SERUM 2.6 mg/dL (1.8-2.4); POTASSIUM - SERUM 4.3 mmol/L (3.5-5.1)
[2018-03-25 19:11] LABS: ACID FAST SMEAR Negative (()); AFB SPECIMEN PROCESSING Concentration (())
[2018-03-26] VITALS (25 sets, daily range): BP systolic 110–174; BP diastolic 72–89
[2018-03-26 05:21] LABS: BASOPHILS 0.4 % (0-2); EOSINOPHILS 1.6 % (0-7); HEMATOCRIT 34.1 % (36.0-48.0); HEMOGLOBIN 11.6 g/dL (12-16); IMMATURE GRANULOCYTES 1.4 % (0-5); LYMPHOCYTES 12.2 % (15-50); MCH 28.9 pg (26.0-34.0); MCV 84.8 fL (80.0-100.0); MEAN PLATELET VOLUME 11.8 fL (7.4-10.4); MONOCYTES 8.9 % (2-11); NEUTROPHILS 75.5 % (40-80); PLATELET COUNT 239 10x3/uL (130-400); RBC 4.02 10x6/uL (4.00-5.40); RDW 16.5 % (11.5-14.5); WBC 14.7 10x3/uL (4.8-10.8)
[2018-03-26 05:56] LABS: ALBUMIN 1.7 g/dL (3.4-5.0); ANION GAP 27.7 mmol/L (8-16); BILIRUBIN - TOTAL 0.68 mg/dL (0.2-1.3); CALCIUM 8.6 mg/dL (8.5-10.1); CARBON DIOXIDE 18.9 mmol/L (21.0-32.0); CREATININE - SERUM 8.7 mg/dL (0.6-1.3); MAGNESIUM - SERUM 2.7 mg/dL (1.8-2.4); POTASSIUM - SERUM 4.6 mmol/L (3.5-5.1); PROTEIN - SERUM 6.1 g/dL (6.4-8.2)
[2018-03-26 09:21] LABS: VIRAL - RESULT No virus isolated. (())
[2018-03-26 13:17] LABS: FUNGUS STAIN Final report (())
[2018-03-26 13:17] LABS: LEGIONELLA ANTIGEN - URINE Negative (Negative)
[2018-03-26 17:12] LABS: HEPATITIS C ANTIBODY 0.1 (0.0-0.9)
[2018-03-27] VITALS (24 sets, daily range): BP systolic 124–173; BP diastolic 66–101
[2018-03-27 04:27] LABS: BASOPHILS 0.5 % (0-2); EOSINOPHILS 1.6 % (0-7); HEMATOCRIT 33.4 % (36.0-48.0); HEMOGLOBIN 11.4 g/dL (12-16); IMMATURE GRANULOCYTES 2.1 % (0-5); LYMPHOCYTES 12.3 % (15-50); MCH 29.4 pg (26.0-34.0); MCHC 34.1 g/dL (31.0-37.0); MCV 86.1 fL (80.0-100.0); MEAN PLATELET VOLUME 11.9 fL (7.4-10.4); MONOCYTES 9.8 % (2-11); NEUTROPHILS 73.7 % (40-80); PLATELET COUNT 254 10x3/uL (130-400); RBC 3.88 10x6/uL (4.00-5.40); RDW 16.5 % (11.5-14.5)
[2018-03-27 04:55] LABS: ALBUMIN 1.7 g/dL (3.4-5.0); ANION GAP 21.8 mmol/L (8-16); BILIRUBIN - TOTAL 0.64 mg/dL (0.2-1.3); CALCIUM 8.3 mg/dL (8.5-10.1); CARBON DIOXIDE 22.3 mmol/L (21.0-32.0); MAGNESIUM - SERUM 2.6 mg/dL (1.8-2.4); POTASSIUM - SERUM 4.1 mmol/L (3.5-5.1); VANCOMYCIN - RANDOM 15.7 ug/mL (10.0-20.0)
[2018-03-27 17:14] LABS: FUNGUS CULTURE RESULT 1 Candida glabrata (())
[2018-03-28] VITALS (24 sets, daily range): BP systolic 121–164; BP diastolic 66–89
[2018-03-28 04:29] LABS: BASOPHILS 0.9 % (0-2); HEMATOCRIT 34.1 % (36.0-48.0); HEMOGLOBIN 11.3 g/dL (12-16); IMMATURE GRANULOCYTES 3.1 % (0-5); LYMPHOCYTES 14.4 % (15-50); MCH 28.7 pg (26.0-34.0); MCHC 33.1 g/dL (31.0-37.0); MCV 86.5 fL (80.0-100.0); MEAN PLATELET VOLUME 12.3 fL (7.4-10.4); MONOCYTES 14.9 % (2-11); NEUTROPHILS 64.7 % (40-80); PLATELET COUNT 303 10x3/uL (130-400); RBC 3.94 10x6/uL (4.00-5.40); RDW 16.3 % (11.5-14.5)
[2018-03-28 04:55] LABS: ALBUMIN 1.7 g/dL (3.4-5.0); ANION GAP 21.7 mmol/L (8-16); BILIRUBIN - TOTAL 0.63 mg/dL (0.2-1.3); CALCIUM 8.6 mg/dL (8.5-10.1); CARBON DIOXIDE 22.3 mmol/L (21.0-32.0); CREATININE - SERUM 7.2 mg/dL (0.6-1.3); GENTAMICIN - RANDOM 2.8 ug/mL (0.5-2.0); MAGNESIUM - SERUM 2.5 mg/dL (1.8-2.4); PROTEIN - SERUM 6.2 g/dL (6.4-8.2); VANCOMYCIN - RANDOM 24.8 ug/mL (10.0-20.0)
[2018-03-29] VITALS (24 sets, daily range): BP systolic 94–165; BP diastolic 59–94
[2018-03-29 04:16] LABS: BASOPHILS 0.4 % (0-2); EOSINOPHILS 2.2 % (0-7); HEMATOCRIT 31.2 % (36.0-48.0); HEMOGLOBIN 10.2 g/dL (12-16); IMMATURE GRANULOCYTES 2.1 % (0-5); LYMPHOCYTES 14.7 % (15-50); MCH 28.6 pg (26.0-34.0); MCHC 32.7 g/dL (31.0-37.0); MCV 87.4 fL (80.0-100.0); MEAN PLATELET VOLUME 12.2 fL (7.4-10.4); MONOCYTES 12.9 % (2-11); NEUTROPHILS 67.7 % (40-80); PLATELET COUNT 345 10x3/uL (130-400); RBC 3.57 10x6/uL (4.00-5.40); RDW 16.3 % (11.5-14.5); WBC 15.7 10x3/uL (4.8-10.8)
[2018-03-29 04:44] LABS: ALBUMIN 1.6 g/dL (3.4-5.0); ANION GAP 21.3 mmol/L (8-16); BILIRUBIN - TOTAL 0.61 mg/dL (0.2-1.3); CALCIUM 8.6 mg/dL (8.5-10.1); CARBON DIOXIDE 22.8 mmol/L (21.0-32.0); GENTAMICIN - RANDOM 2.1 ug/mL (0.5-2.0); MAGNESIUM - SERUM 2.6 mg/dL (1.8-2.4); POTASSIUM - SERUM 4.1 mmol/L (3.5-5.1); PROTEIN - SERUM 5.9 g/dL (6.4-8.2); VANCOMYCIN - RANDOM 21.5 ug/mL (10.0-20.0)
[2018-03-29 04:46] LABS: PHOSPHOROUS 10.4 mg/dL (2.5-4.9)
[2018-03-29 15:25] LABS: ALBUMIN 1.6 g/dL (3.4-5.0); ANION GAP 15.9 mmol/L (8-16); BILIRUBIN - TOTAL 0.63 mg/dL (0.2-1.3); CARBON DIOXIDE 25.9 mmol/L (21.0-32.0); MAGNESIUM - SERUM 2.1 mg/dL (1.8-2.4); POTASSIUM - SERUM 3.8 mmol/L (3.5-5.1); PROTEIN - SERUM 5.9 g/dL (6.4-8.2)
[2018-03-29 15:27] LABS: CREATININE - SERUM 4.6 mg/dL (0.6-1.3)
[2018-03-30] VITALS (25 sets, daily range): BP systolic 103–165; BP diastolic 52–82
[2018-03-30 04:28] LABS: BASOPHILS 0.3 % (0-2); EOSINOPHILS 1.7 % (0-7); HEMATOCRIT 30.8 % (36.0-48.0); HEMOGLOBIN 9.7 g/dL (12-16); IMMATURE GRANULOCYTES 1.8 % (0-5); LYMPHOCYTES 13.2 % (15-50); MCHC 31.5 g/dL (31.0-37.0); MEAN PLATELET VOLUME 11.4 fL (7.4-10.4); MONOCYTES 11.3 % (2-11); NEUTROPHILS 71.7 % (40-80); PLATELET COUNT 365 10x3/uL (130-400); RBC 3.46 10x6/uL (4.00-5.40); RDW 16.4 % (11.5-14.5); WBC 16.1 10x3/uL (4.8-10.8)
[2018-03-30 04:59] LABS: ALBUMIN 1.6 g/dL (3.4-5.0); ANION GAP 16.8 mmol/L (8-16); BILIRUBIN - TOTAL 0.51 mg/dL (0.2-1.3); CALCIUM 8.4 mg/dL (8.5-10.1); CARBON DIOXIDE 23.9 mmol/L (21.0-32.0); CREATININE - SERUM 5.8 mg/dL (0.6-1.3); POTASSIUM - SERUM 3.7 mmol/L (3.5-5.1); PROTEIN - SERUM 5.8 g/dL (6.4-8.2); VANCOMYCIN - RANDOM 15.6 ug/mL (10.0-20.0)
[2018-03-31] VITALS (24 sets, daily range): BP systolic 96–189; BP diastolic 62–91
[2018-03-31 03:09] LABS: BASOPHILS 0.3 % (0-2); EOSINOPHILS 3.7 % (0-7); HEMATOCRIT 27.7 % (36.0-48.0); HEMOGLOBIN 8.9 g/dL (12-16); IMMATURE GRANULOCYTES 2.3 % (0-5); LYMPHOCYTES 14.3 % (15-50); MCH 28.3 pg (26.0-34.0); MCHC 32.1 g/dL (31.0-37.0); MCV 88.2 fL (80.0-100.0); MEAN PLATELET VOLUME 11.3 fL (7.4-10.4); MONOCYTES 8.8 % (2-11); NEUTROPHILS 70.6 % (40-80); PLATELET COUNT 367 10x3/uL (130-400); RBC 3.14 10x6/uL (4.00-5.40); WBC 18.2 10x3/uL (4.8-10.8)
[2018-03-31 03:25] LABS: ALBUMIN 1.5 g/dL (3.4-5.0); ANION GAP 18.3 mmol/L (8-16); BILIRUBIN - TOTAL 0.58 mg/dL (0.2-1.3); CALCIUM 8.2 mg/dL (8.5-10.1); CARBON DIOXIDE 23.2 mmol/L (21.0-32.0); CREATININE - SERUM 6.8 mg/dL (0.6-1.3); MAGNESIUM - SERUM 2.4 mg/dL (1.8-2.4); POTASSIUM - SERUM 3.5 mmol/L (3.5-5.1); PROTEIN - SERUM 5.6 g/dL (6.4-8.2); VANCOMYCIN - RANDOM 26.7 ug/mL (10.0-20.0)
[2018-03-31 03:26] LABS: PHOSPHOROUS 7.1 mg/dL (2.5-4.9)
[2018-03-31 15:25] LABS: FUNGUS CULTURE RESULT 1 Candida albicans (())
[2018-04-01] VITALS (24 sets, daily range): BP systolic 97–175; BP diastolic 54–94
[2018-04-01 05:15] LABS: ALBUMIN 1.5 g/dL (3.4-5.0); ANION GAP 15.5 mmol/L (8-16); BILIRUBIN - TOTAL 0.48 mg/dL (0.2-1.3); CALCIUM 8.5 mg/dL (8.5-10.1); POTASSIUM - SERUM 3.5 mmol/L (3.5-5.1); VANCOMYCIN - RANDOM 21.1 ug/mL (10.0-20.0)
[2018-04-01 05:17] LABS: CREATININE - SERUM 4.5 mg/dL (0.6-1.3)
[2018-04-01 05:25] LABS: RBC 2.19 10x6/uL (4.00-5.40)
[2018-04-01 05:26] LABS: BASOPHILS 0.2 % (0-2); HEMATOCRIT 19.7 % (36.0-48.0); HEMOGLOBIN 6.3 g/dL (12-16); LYMPHOCYTES 9.7 % (15-50); MCH 28.8 pg (26.0-34.0); MEAN PLATELET VOLUME 11.2 fL (7.4-10.4); MONOCYTES 9.3 % (2-11); NEUTROPHILS 75.8 % (40-80); PLATELET COUNT 463 10x3/uL (130-400); RDW 16.3 % (11.5-14.5)
[2018-04-01 11:36] LABS: APTT 33.2 SECONDS (22.8-39.4); INR 1.07 (0.85-1.17); PROTIME 13.5 SECONDS (11.6-15.0)
[2018-04-01 14:53] LABS: HEMATOCRIT 35.7 % (36.0-48.0)
[2018-04-02] VITALS (24 sets, daily range): BP systolic 92–164; BP diastolic 63–89
[2018-04-02 04:06] LABS: BASOPHILS 0.3 % (0-2); EOSINOPHILS 1.2 % (0-7); HEMATOCRIT 34.6 % (36.0-48.0); HEMOGLOBIN 11.3 g/dL (12-16); IMMATURE GRANULOCYTES 2.5 % (0-5); MCH 28.8 pg (26.0-34.0); MCHC 32.7 g/dL (31.0-37.0); MCV 88.3 fL (80.0-100.0); MEAN PLATELET VOLUME 11.3 fL (7.4-10.4); MONOCYTES 9.1 % (2-11); NEUTROPHILS 78.9 % (40-80); RDW 16.3 % (11.5-14.5)
[2018-04-02 04:10] LABS: PLATELET COUNT 318 10x3/uL (130-400); RBC 3.92 10x6/uL (4.00-5.40); WBC 18.5 10x3/uL (4.8-10.8)
[2018-04-02 04:23] LABS: ALBUMIN 1.6 g/dL (3.4-5.0); ANION GAP 13.8 mmol/L (8-16); BILIRUBIN - TOTAL 0.54 mg/dL (0.2-1.3); CALCIUM 8.8 mg/dL (8.5-10.1); CARBON DIOXIDE 27.3 mmol/L (21.0-32.0); CREATININE - SERUM 3.9 mg/dL (0.6-1.3); PHOSPHOROUS 4.2 mg/dL (2.5-4.9); POTASSIUM - SERUM 3.1 mmol/L (3.5-5.1); PROTEIN - SERUM 6.2 g/dL (6.4-8.2); VANCOMYCIN - RANDOM 15.4 ug/mL (10.0-20.0)
[2018-04-03] VITALS (23 sets, daily range): BP systolic 112–177; BP diastolic 63–90
[2018-04-03 05:21] LABS: BASOPHILS 0.2 % (0-2); EOSINOPHILS 1.5 % (0-7); HEMATOCRIT 35.4 % (36.0-48.0); HEMOGLOBIN 11.5 g/dL (12-16); IMMATURE GRANULOCYTES 1.7 % (0-5); LYMPHOCYTES 9.9 % (15-50); MCH 29.3 pg (26.0-34.0); MCHC 32.5 g/dL (31.0-37.0); MCV 90.1 fL (80.0-100.0); MEAN PLATELET VOLUME 11.6 fL (7.4-10.4); MONOCYTES 10.9 % (2-11); NEUTROPHILS 75.8 % (40-80); PLATELET COUNT 324 10x3/uL (130-400); RBC 3.93 10x6/uL (4.00-5.40); RDW 16.6 % (11.5-14.5); WBC 19.6 10x3/uL (4.8-10.8)
[2018-04-03 05:34] LABS: ALBUMIN 1.8 g/dL (3.4-5.0); ANION GAP 13.4 mmol/L (8-16); BILIRUBIN - TOTAL 0.46 mg/dL (0.2-1.3); CALCIUM 8.9 mg/dL (8.5-10.1); CARBON DIOXIDE 27.9 mmol/L (21.0-32.0); CREATININE - SERUM 3.6 mg/dL (0.6-1.3); POTASSIUM - SERUM 3.3 mmol/L (3.5-5.1); PROTEIN - SERUM 6.6 g/dL (6.4-8.2); VANCOMYCIN - RANDOM 30.5 ug/mL (10.0-20.0)
[2018-04-04] VITALS (12 sets, daily range): BP systolic 97–180; BP diastolic 66–102
[2018-04-04 06:21] LABS: BASOPHILS 0.3 % (0-2); HEMOGLOBIN 10.9 g/dL (12-16); IMMATURE GRANULOCYTES 0.9 % (0-5); LYMPHOCYTES 10.8 % (15-50); MCH 28.8 pg (26.0-34.0); MCHC 32.1 g/dL (31.0-37.0); MCV 89.7 fL (80.0-100.0); MEAN PLATELET VOLUME 11.5 fL (7.4-10.4); MONOCYTES 9.4 % (2-11); NEUTROPHILS 76.6 % (40-80); PLATELET COUNT 287 10x3/uL (130-400); RBC 3.79 10x6/uL (4.00-5.40); RDW 16.2 % (11.5-14.5); WBC 17.9 10x3/uL (4.8-10.8)
[2018-04-04 06:59] LABS: ALBUMIN 1.7 g/dL (3.4-5.0); ANION GAP 16.9 mmol/L (8-16); BILIRUBIN - TOTAL 0.52 mg/dL (0.2-1.3); CALCIUM 9.3 mg/dL (8.5-10.1); PHOSPHOROUS 5.7 mg/dL (2.5-4.9); PROTEIN - SERUM 6.4 g/dL (6.4-8.2); VANCOMYCIN - RANDOM 26.9 ug/mL (10.0-20.0)
[2018-04-04 07:07] LABS: CREATININE - SERUM 5.3 mg/dL (0.6-1.3); POTASSIUM - SERUM 3.9 mmol/L (3.5-5.1)
[2018-04-04 15:16] LABS: BASOPHILS 0.5 % (0-2); EOSINOPHILS 1.8 % (0-7); IMMATURE GRANULOCYTES 0.8 % (0-5); LYMPHOCYTES 18.9 % (15-50); MCH 29.1 pg (26.0-34.0); MCHC 31.6 g/dL (31.0-37.0); MEAN PLATELET VOLUME 11.4 fL (7.4-10.4); MONOCYTES 6.3 % (2-11); NEUTROPHILS 71.7 % (40-80); PLATELET COUNT 253 10x3/uL (130-400); RDW 16.2 % (11.5-14.5); WBC 15.2 10x3/uL (4.8-10.8)
[2018-04-04 15:21] LABS: RBC 2.58 10x6/uL (4.00-5.40)
[2018-04-04 15:22] LABS: HEMATOCRIT 23.7 % (36.0-48.0); HEMOGLOBIN 7.5 g/dL (12-16); MCV 91.9 fL (80.0-100.0)
[2018-04-04 15:37] LABS: INR 1.29 (0.85-1.17); PROTIME 15.6 SECONDS (11.6-15.0)
[2018-04-04 16:59] LABS: HEMATOCRIT 31.8 % (36.0-48.0); HEMOGLOBIN 10.3 g/dL (12-16)
[2018-04-04 19:57] LABS: HEMATOCRIT 23.2 % (36.0-48.0); HEMOGLOBIN 7.5 g/dL (12-16)
[2018-04-05] VITALS (21 sets, daily range): BP systolic 109–157; BP diastolic 61–97
[2018-04-05 05:28] LABS: BASOPHILS 0.5 % (0-2); IMMATURE GRANULOCYTES 0.8 % (0-5); LYMPHOCYTES 16.1 % (15-50); MEAN PLATELET VOLUME 10.4 fL (7.4-10.4); MONOCYTES 7.8 % (2-11); NEUTROPHILS 73.8 % (40-80); RDW 15.3 % (11.5-14.5)
[2018-04-05 05:29] LABS: HEMATOCRIT 32.1 % (36.0-48.0); HEMOGLOBIN 10.9 g/dL (12-16); MCV 88.4 fL (80.0-100.0); PLATELET COUNT 162 10x3/uL (130-400); RBC 3.63 10x6/uL (4.00-5.40); WBC 11.3 10x3/uL (4.8-10.8)
[2018-04-05 05:53] LABS: APTT 24.3 SECONDS (22.8-39.4); INR 1.31 (0.85-1.17); PROTIME 15.8 SECONDS (11.6-15.0)
[2018-04-05 06:05] LABS: ALBUMIN 1.8 g/dL (3.4-5.0); BILIRUBIN - TOTAL 0.49 mg/dL (0.2-1.3); CALCIUM 7.2 mg/dL (8.5-10.1); CREATININE - SERUM 4.7 mg/dL (0.6-1.3); POTASSIUM - SERUM 4.3 mmol/L (3.5-5.1); VANCOMYCIN - RANDOM 15.5 ug/mL (10.0-20.0)
[2018-04-05 06:06] LABS: ANION GAP 17.6 mmol/L (8-16); CARBON DIOXIDE 18.7 mmol/L (21.0-32.0); PROTEIN - SERUM 4.5 g/dL (6.4-8.2)
[2018-04-05 12:58] LABS: HEMATOCRIT 31.5 % (36.0-48.0); HEMOGLOBIN 10.7 g/dL (12-16)
[2018-04-05 13:49] LABS: HEMATOCRIT 31.8 % (36.0-48.0); HEMOGLOBIN 10.7 g/dL (12-16)
[2018-04-05 21:47] LABS: HEMATOCRIT 32.2 % (36.0-48.0); HEMOGLOBIN 11.2 g/dL (12-16)
[2018-04-06] VITALS (24 sets, daily range): BP systolic 89–185; BP diastolic 48–92
[2018-04-06 01:13] LABS: HEMATOCRIT 31.3 % (36.0-48.0); HEMOGLOBIN 10.7 g/dL (12-16)
[2018-04-06 03:48] LABS: BASOPHILS 0.5 % (0-2); EOSINOPHILS 2.1 % (0-7); HEMATOCRIT 29.1 % (36.0-48.0); HEMOGLOBIN 9.8 g/dL (12-16); IMMATURE GRANULOCYTES 0.6 % (0-5); LYMPHOCYTES 7.3 % (15-50); MCH 29.4 pg (26.0-34.0); MCHC 33.7 g/dL (31.0-37.0); MCV 87.4 fL (80.0-100.0); MEAN PLATELET VOLUME 10.8 fL (7.4-10.4); MONOCYTES 8.7 % (2-11); NEUTROPHILS 80.8 % (40-80); PLATELET COUNT 141 10x3/uL (130-400); RBC 3.33 10x6/uL (4.00-5.40); RDW 15.8 % (11.5-14.5)
[2018-04-06 03:51] LABS: WBC 14.7 10x3/uL (4.8-10.8)
[2018-04-06 03:58] LABS: APTT 21.8 SECONDS (22.8-39.4); INR 1.14 (0.85-1.17); PROTIME 14.2 SECONDS (11.6-15.0)
[2018-04-06 04:24] LABS: ALBUMIN 1.8 g/dL (3.4-5.0); BILIRUBIN - TOTAL 0.71 mg/dL (0.2-1.3); CALCIUM 7.7 mg/dL (8.5-10.1); CARBON DIOXIDE 22.7 mmol/L (21.0-32.0); CREATININE - SERUM 3.8 mg/dL (0.6-1.3); PHOSPHOROUS 6.7 mg/dL (2.5-4.9); VANCOMYCIN - RANDOM 26.2 ug/mL (10.0-20.0)
[2018-04-06 04:27] LABS: ANION GAP 17.7 mmol/L (8-16); POTASSIUM - SERUM 3.4 mmol/L (3.5-5.1); PROTEIN - SERUM 3.4 g/dL (6.4-8.2)
[2018-04-06 09:48] LABS: HEMATOCRIT 31.2 % (36.0-48.0); HEMOGLOBIN 10.5 g/dL (12-16)
[2018-04-06 15:59] LABS: HEMATOCRIT 31.1 % (36.0-48.0); HEMOGLOBIN 10.6 g/dL (12-16)
[2018-04-14 07:10] LABS: FUNGUS MYCOLOGY CULTURE Final report (())
[2018-04-19 19:07] LABS: FUNGUS MYCOLOGY CULTURE Final report (())
[2018-04-21 07:09] LABS: FUNGUS MYCOLOGY CULTURE Final report (())
[2018-05-06 08:20] LABS: ACID FAST CULTURE Negative (()); ACID FAST SMEAR Negative (())
[2018-05-09 11:20] LABS: ACID FAST CULTURE Negative (()); ACID FAST SMEAR Negative (())
== END 2018-04-07 00:38 | disposition hospice, inpatient (51) | DRG 4 ==
LOC: D.ICU 04:45
PROVIDERS: Internal Medicine; Internal Medicine Gastroenterology; Internal Medicine Nephrology; Internal Medicine Pulmonary Disease; Specialist; Student in an Organized Health Care Education/Training Program
PROC: 05HM33Z Insertion of Infusion Device into Right Internal Jugular Vein, Percutaneous Approach (ICD-10-PCS; principal; 2018-03-12)
PROC: 5A1955Z Respiratory Ventilation, Greater than 96 Consecutive Hours (ICD-10-PCS; 2018-03-12)
PROC: 0BH17EZ Insertion of Endotracheal Airway into Trachea, Via Natural or Artificial Opening (ICD-10-PCS; 2018-03-12)
PROC: 009U3ZX Drainage of Spinal Canal, Percutaneous Approach, Diagnostic (ICD-10-PCS; 2018-03-16)
PROC: 0B113F4 Bypass Trachea to Cutaneous with Tracheostomy Device, Percutaneous Approach (ICD-10-PCS; 2018-03-25)
PROC: 0DH63UZ Insertion of Feeding Device into Stomach, Percutaneous Approach (ICD-10-PCS; 2018-03-25)
PROC: B4151ZZ Fluoroscopy of Inferior Mesenteric Artery using Low Osmolar Contrast (ICD-10-PCS; 2018-04-04)
PROC: B4141ZZ Fluoroscopy of Superior Mesenteric Artery using Low Osmolar Contrast (ICD-10-PCS; 2018-04-04)
DX: A41.9 Sepsis, unspecified organism (principal); R65.21 Severe sepsis with septic shock; J96.01 Acute respiratory failure with hypoxia; J96.02 Acute respiratory failure with hypercapnia; N18.6 End stage renal disease; I46.9 Cardiac arrest, cause unspecified; I50.23 Acute on chronic systolic (congestive) heart failure; J69.0 Pneumonitis due to inhalation of food and vomit; G93.41 Metabolic encephalopathy; E87.2 Acidosis; J81.1 Chronic pulmonary edema; I13.2 Hypertensive heart and chronic kidney disease with heart failure and with stage 5 chronic kidney disease, or end stage renal disease; E87.1 Hypo-osmolality and hyponatremia; N17.9 Acute kidney failure, unspecified; D62 Acute posthemorrhagic anemia; E11.22 Type 2 diabetes mellitus with diabetic chronic kidney disease; Z99.2 Dependence on renal dialysis; D63.1 Anemia in chronic kidney disease; Z66 Do not resuscitate; I95.9 Hypotension, unspecified; E21.3 Hyperparathyroidism, unspecified; E87.5 Hyperkalemia; R00.1 Bradycardia, unspecified; D69.6 Thrombocytopenia, unspecified; I25.5 Ischemic cardiomyopathy; R60.1 Generalized edema; I07.1 Rheumatic tricuspid insufficiency

== ENCOUNTER 2018-04-07 00:30 | Inpatient (IN) | payer OTHER ==
[~2018-04-07] VITALS: Ht 157.5 cm; Wt 83.5 kg
[~2018-04-07 00:30] MED LIST changes: +ATIVAN0.5 MG PO; +LIPITOR20 MG; +PAXIL20 MG
[2018-04-07 03:00] VITALS: BP 94/59
[2018-04-07 03:02] VITALS: BP 96/56; BMI 33.7
[2018-04-07 03:45] VITALS: BP 96/56
[2018-04-07 13:04] VITALS: BP 109/58
[2018-04-07 21:16] VITALS: BP 97/53
[2018-04-08 10:10] VITALS: BMI 33.6
[2018-04-08 21:06] VITALS: BP 137/63
[2018-04-09 20:00] VITALS: BP 118/54
[2018-04-10 09:08] VITALS: BP 128/57
[2018-04-10 12:26] VITALS: BP 105/50
[2018-04-10 20:00] VITALS: BP 110/50
[2018-04-11 09:03] VITALS: BP 107/49
[2018-04-11 20:00] VITALS: BP 90/48
[2018-04-12 06:51] VITALS: BP 102/61
[2018-04-12 20:00] VITALS: BP 115/51
[2018-04-13 11:28] VITALS: BP 90/37
[2018-04-28 12:01] VITALS: Ht 157.5 cm; Wt 83.5 kg
== END 2018-04-13 15:57 | DRG 951 ==
LOC: D.ICU 00:30 → D.MS 00:30
DX: Z51.5 Encounter for palliative care (principal)